=== PATIENT | male | born 1975 | race American Indian/Alaskan Native ===

== ENCOUNTER 2017-04-17 06:14 | Emergency (ER) | payer MEDICAID ==
[2017-04-17 06:30] VITALS: RESP 18; TEMP 98.6; O2SAT 98
--- NOTE | 2017-04-17 06:47 | C.PDOC ---
History Of Present Illness Patient comes in c/o subjective fevers associated with body aches, sore throat, and cough for 3 days. Denies ear pain, vomiting, diarrhea, abdominal pain, or back pain. No SOB, chest pain, or recent travel. Time Seen by Provider: 04/17/17 06:23 Chief Complaint (Nursing): Cough, Cold, Congestion History Per: Patient History/Exam Limitations: no limitations Onset/Duration Of Symptoms: Days (3) Current Symptoms Are (Timing): Still Present Location Of Pain: None Associated Symptoms: Sore Throat, Cough, Myalgias Ear Symptoms: Bilateral: None Severity: Mild Recent travel outside of the [place]: No Additional History Per: Patient Past Medical History Reviewed: Historical Data, Nursing Documentation, Vital Signs Vital Signs: Last Vital Signs Temp 98.6 F 04/17/17 06:23 Pulse 78 04/17/17 07:11 Resp 18 04/17/17 07:11 BP 115/71 04/17/17 07:11 Pulse Ox 98 04/17/17 07:11 - Medical History PMH: No Chronic Diseases Family History: States: Unknown Family Hx - Social History Hx Alcohol Use: No Hx Substance Use: No - Immunization History Hx Tetanus Toxoid Vaccination: No Hx Influenza Vaccination: Yes Hx Pneumococcal Vaccination: No Review Of Systems Constitutional: Positive for: Fever (subjective), Other (body aches) ENT: Positive for: Throat Pain Cardiovascular: Negative for: Chest Pain Respiratory: Positive for: Cough. Negative for: Shortness of Breath Gastrointestinal: Negative for: Vomiting, Abdominal Pain, Diarrhea Musculoskeletal: Negative for: Neck Pain, Back Pain Skin: Negative for: Rash Neurological: Negative for: Weakness Physical Exam - Physical Exam Appears: Non-toxic, No Acute Distress Skin: Warm, Dry, No Rash Head: Atraumatic, Normacephalic Eye(s): bilateral: Normal Inspection, PERRL, EOMI Ear(s): Bilateral: Normal Oral Mucosa: Moist Throat: Erythema, No Exudate Neck: Normal ROM, Supple Lymphatic: Adenopathy Chest: Symmetrical, No Tenderness Cardiovascular: Rhythm Regular, No Friction Rub, No Murmur Respiratory: Normal Breath Sounds, No Rales, No Rhonchi, No Wheezing Gastrointestinal/Abdominal: Soft, No Tenderness Back: No CVA Tenderness Neurological/Psych: Oriented x3, Normal Speech, Normal Cognition Gait: Steady ED Course And Treatment O2 Sat by Pulse Oximetry: 98 (RA) Pulse Ox Interpretation: Normal Medical Decision Making Medical Decision Making: Impression: * subjective fevers associated wtih body aches, sore throat, and cough for 3 days. Disposition - Disposition Referrals: [facility] [Outside] Disposition: HOME/ ROUTINE Disposition Time: 06:47 Condition: GOOD Additional Instructions: Follow up with the medical doctor within 1-2 days. Return if worsened. Prescriptions: Azithromycin [Zithromax] 250 mg PO DAILY #4 tab Ibuprofen [Motrin] 600 mg PO TID #21 tab predniSONE [Prednisone] 20 mg PO BID #10 tab Instructions: Pharyngitis (ED) Forms: [employer] (Citizen Of [place]), Work Excuse - Clinical Impression Clinical Impression: Pharyngitis - Scribe Statement The provider has reviewed the documentation as recorded by the Scribe Cesar llanes All medical record entries made by the Scribe were at my direction and personally dictated by me. I have reviewed the chart and agree that the record accurately reflects my personal performance of the history, physical exam, medical decision making, and the department course for this patient. I have also personally directed, reviewed, and agree with the discharge instructions and disposition.
[2017-04-17 07:11] VITALS: BP 115/71; PULSE 78
== END 2017-04-17 07:12 | disposition home or self-care (01) ==
LOC: C.ER 06:14
DX: J02.9 Acute pharyngitis, unspecified (principal)

== ENCOUNTER 2018-08-08 04:08 | Inpatient (IN) | payer MEDICAID ==
--- NOTE | 2018-08-08 04:20 | C.PDOC ---
History Of Present Illness Patient woke up around 3:10 AM and noticed that he had no strength to squeeze the toothpaste with his right hand. Woke up his and realized that he had some slurred speech and his right side of the face"was not right" Patient took an aspirin area captain. In the ed no facial droop, mild slurred speech. No headache. n/v/f/c/. Time Seen by Provider: 08/08/18 04:17 History Per: Patient History/Exam Limitations: no limitations Onset/Duration Of Symptoms: Hrs (1.15) Current Symptoms Are (Timing): Better Severity: Moderate Pain Scale Rating Of: 4 Recent travel outside of the [place]: No Additional History Per: Family Past Medical History Reviewed: Historical Data, Nursing Documentation, Vital Signs Family History: States: No Known Family Hx - Social History Hx Alcohol Use: No Hx Substance Use: No - Immunization History Hx Tetanus Toxoid Vaccination: No Hx Influenza Vaccination: Yes Hx Pneumococcal Vaccination: No Review Of Systems Constitutional: Negative for: Fever, Chills Eyes: Negative for: Vision Change ENT: Negative for: Throat Pain Cardiovascular: Negative for: Chest Pain Respiratory: Negative for: Shortness of Breath Gastrointestinal: Negative for: Nausea, Vomiting, Abdominal Pain Genitourinary: Negative for: Dysuria Musculoskeletal: Negative for: Back Pain Skin: Negative for: Rash Neurological: Positive for: Weakness (right hand), Change in Speech Psych: Negative for: Anxiety Physical Exam - Physical Exam Appears: Non-toxic, No Acute Distress Skin: Warm, Dry Head: Normacephalic Eye(s): bilateral: Normal Inspection, PERRL, EOMI Nose: Normal Oral Mucosa: Moist Tongue: Normal Appearing Lips: Normal Appearing Throat: No Erythema, No Exudate Neck: Supple Chest: Symmetrical Cardiovascular: Rhythm Regular Respiratory: No Rales, No Rhonchi, No Wheezing Gastrointestinal/Abdominal: Soft, No Tenderness, No Distention Back: Normal Inspection Extremity: Normal ROM Extremity: Bilateral: Atraumatic, No Pedal Edema, Normal Color And Temperature, Normal ROM Pulses: Left Dorsalis Pedis: Normal, Right Dorsalis Pedis: Normal Neurological/Psych: Oriented x3, No Normal Speech (mild slurred speech) Gait: Steady Other Neurological Findings: No Facial Palsy Extremity: Right: No Drift, Left: No Drift, Upper: No Drift, Lower: No Drift ED Course And Treatment - Laboratory Results Result Diagrams: 08/08/18 04:29 08/08/18 04:29 ECG: Interpreted By Me, Viewed By Me ECG Rhythm: Sinus Rhythm (53), Nonspecific Changes O2 Sat by Pulse Oximetry: 99 Pulse Ox Interpretation: Normal - Radiology CXR: Interpreted by Me, Viewed By Me Progress Note: 5:50 AM Pt is back to base line,. Slurred speeche resolved. spoke with dr bright. ok with mri/mra in am. Critical Care Time - Critical Care Note Total Time (in mins): 30 Documented critical care: time excludes all time spent performing seperately billable procedures. NIHSS Stroke Scale - Date/Time Evaluation Performed Date Performed: 08/08/18 Time Performed: 04:13 When Was NIHSS Performed: Baseline - How Severe is the Stroke Level of Consciousness: 0=Alert LOC to Questions: 0=Both comments correct LOC to commands: 0=Obeys both correctly Best Gaze: 0=Normal Visual: 0=No visual loss Facial: 0=Normal Motor Arm - Left: 0=No drift Motor Arm - Right: 0=No drift Motor Leg - Left: 0=No drift Motor Leg - Right: 0=No drift Limb Ataxia: 0=Absent Sensory: 0=Normal Best Language: 0=No aphasia Dysarthia: 1=Mild to moderate slurring Extinction & Inattention (Neglect): 0=Normal, no object Score: 1 Disposition Discussed With : Vini Wild Comment: accepted the pt on his service and took over the care at 5:52 AM Doctor Will See Patient In The: Hospital Counseled Patient/Family Regarding: Studies Performed, Diagnosis - Disposition Disposition: HOSPITALIZED Disposition Time: 04:17 Condition: GUARDED - POA Present On Arrival: None - Clinical Impression Clinical Impression: TIA (transient ischemic attack) Decision To Admit - Pt Status Changed To: Hospital Disposition Of: Inpatient - Admit Certification Admit to Inpatient:: After my assessment, the patient will require hospitalization for at least two midnights. This is because of the severity of symptoms shown, intensity of services needed, and/or the medical risk in this patient being treated as an outpatient. - InPatient: Physician Admission Certification: I certify that this patient requires 2 or more midnights of care for the following reason:: After my assessment, the patient will require hospitalization for at least two midnights. This is because of the severity of symptoms shown, intensity of services needed, and/or the medical risk in this patient being treated as an outpatient. - . Bed Request Type: Telemetry Admitting Physician: Vini Wild Patient Diagnosis: TIA (transient ischemic attack)
[2018-08-08 04:23] VITALS: BMI 30.7
[2018-08-08 04:33] LABS: BASO # 0.1 K/uL (0.0-0.2); BASO % 1.3 % (0.0-2.0); EOS # 0.2 K/uL (0.0-0.7); EOS % 4.4 % (0.0-4.0); HEMOGLOBIN 15.9 g/dL (12.0-18.0); LYMPH # 1.4 K/uL (1.0-4.3); LYMPH % 32.2 % (20.0-40.0); MEAN CELL VOLUME 88.2 fL (80.0-94.0); MEAN CORPUSCULAR HEMOGLOBIN 28.8 pg (27.0-31.0); MEAN CORPUSCULAR HGB CONC 32.6 g/dL (33.0-37.0); MEAN PLATELET VOLUME 8.4 fL (7.2-11.7); MONO # 0.4 K/uL (0.0-0.8); MONO % 9.1 % (0.0-10.0); NEUT # 2.4 K/uL (1.8-7.0); NRBC % 0.1 % (0.0-2.0); RBC 5.51 Mil/uL (4.40-5.90); RED CELL DISTRIBUTION WIDTH 13.1 % (11.5-14.5); WHITE BLOOD COUNT 4.5 K/uL (4.8-10.8)
[2018-08-08 04:43] LABS: ALB/GLOB RATIO 1.5 (1.0-2.1); ALBUMIN 4.5 g/dL (3.5-5.0); BLOOD UREA NITROGEN 15 mg/dL (9-20); CALCIUM 8.8 mg/dl (8.6-10.4); GFR NON-AFRICAN AMERICAN > 60; HDL CHOLESTEROL 59 mg/dL (30-70)
[2018-08-08 04:45] LABS: INR 1.1; PROTHROMBIN TIME 11.8 SECONDS (9.7-12.2)
[2018-08-08 04:54] LABS: LDL CHOLESTEROL 110 mg/dL (0-129)
[2018-08-08 04:56] LABS: ALT/SGPT 34 U/L (21-72); AST/SGOT 48 U/L (17-59)
[2018-08-08] MEDS: Sodium Chloride 0.9% 1,000 ML IV SCH ×2 (05:54→16:06)
[2018-08-08] MEDS ORDERED: Sodium Chloride 0.9% 1,000 ML ONE (05:55)
--- NOTE | 2018-08-08 08:40 | CT ---
Date of service: 08/08/2018 PROCEDURE: CT HEAD WITHOUT CONTRAST. HISTORY: Code Stroke COMPARISON: None available. TECHNIQUE: Axial computed tomography images were obtained through the head/brain without intravenous contrast. Radiation dose: Total exam DLP = 1128.03 mGy-cm. This CT exam was performed using one or more of the following dose reduction techniques: Automated exposure control, adjustment of the mA and/or kV according to patient size, and/or use of iterative reconstruction technique. FINDINGS: HEMORRHAGE: No intracranial hemorrhage. BRAIN: Kahn-white matter differentiation is preserved. There is no mass, mass effect or abnormal extra-axial fluid collection. There is no territorial infarction. The midline sagittal structures are normal. VENTRICLES: The ventricles are normal in size, shape and configuration. CALVARIUM: There is no calvarial fracture or extracranial soft tissue swelling. PARANASAL SINUSES: There is complete opacification of the left frontal sinus and mild mucosal thickening in the left anterior ethmoid air cells. The remaining included paranasal sinuses are clear. MASTOID AIR CELLS: Predominantly clear. OTHER FINDINGS: None. IMPRESSION: No acute intracranial abnormality.If there is a persistent focal neurologic deficit and an ongoing clinical concern for acute infarction, an MRI of the brain without intravenous contrast would be a more sensitive modality for evaluation of hyperacute/acute ischemic infarction. Chronic left frontal and left anterior ethmoid sinusitis. A preliminary report was provided by [employer].
--- NOTE | 2018-08-08 08:44 | CT ---
Date of service: 08/08/2018 PROCEDURE: CTA HEAD AND NECK WITH CONTRAST HISTORY: right sided weakness, slurred speech COMPARISON: None available. TECHNIQUE: Initial noncontrast head CT was performed. Subsequently, CT angiogram of the head and neck were performed after the intravenous administration of 80 mL of Omnipaque 350. Contiguous 1.5mm thick images were obtained in the axial plane of the neck. 2-D coronal and sagittal MPR images were obtained. Imaging postprocessing was performed with 3-D images also obtained. A delayed contrast head CT was also obtained. This CT exam was performed using one or more of the following dose reduction techniques: Automated exposure control, adjustment of the mA and/or kV according to patient size, and/or use of iterative reconstruction technique. Contrast dose: 100 mL Visipaque 320 Radiation dose: Total exam DLP = 584.12 mGy-cm. FINDINGS: HEAD: Right: The intracranial internal carotid artery, and anterior and middle cerebral arteries are widely patent. The right A1 segment is hypoplastic, an anatomic variant. Left: The intracranial internal carotid artery, and anterior and middle cerebral arteries are widely patent. Posterior circulation: The visualized intracranial vertebral arteries, basilar artery and posterior cerebral arteries are widely patent. There is no endoluminal filling defect to suggest thrombus. There is no intracranial saccular aneurysm. NECK: There is a three vessel aortic arch. There is no stenosis at the origins of the great vessels at the level of the aortic arch. No atherosclerotic calcification or mural plaque present. Right Carotid: On the right, the common carotid, internal carotid and external carotid arteries are widely patent. There is no hemodynamically significant stenosis in the internal carotid artery by NASCET criteria. Left Carotid: On the left, the common carotid, internal carotid and external carotid arteries are widely patent. There is no hemodynamically significant stenosis in the internal carotid artery by NASCET criteria. The vertebral arteries are widely patent. The left vertebral artery is hypoplastic, an anatomic variant. The visualized soft tissues of the neck are normal. The visualized brain and cervical spine are within normal limits. The lung apices are clear. IMPRESSION: 1. No evidence of endoluminal thrombus,occlusion or definite significant stenosis in the intracranial arteries. 2. No evidence of hemodynamically significant stenosis in the internal carotid arteries. 3. Patent bilateral vertebral arteries. A preliminary report was provided by [employer].
--- NOTE | 2018-08-08 09:09 | RAD ---
Date of service: 08/08/2018 HISTORY: Code Stroke COMPARISON: 08/08/2018. FINDINGS: LUNGS: The lungs are well inflated and clear. PLEURA: No pleural effusions or pneumothorax. CARDIOVASCULAR: The heart is normal in size. No aortic atherosclerotic calcifications present. OSSEOUS STRUCTURES: Within normal limits for the patient's age. VISUALIZED UPPER ABDOMEN: Normal. OTHER FINDINGS: None. IMPRESSION: No active pulmonary disease.
--- NOTE | 2018-08-08 12:14 | MRI ---
Date of service: 08/08/2018 PROCEDURE: Magnetic Resonance Angiography Brain HISTORY: TIA COMPARISON: CTA head and neck performed earlier the same day TECHNIQUE: 3D time of flight MR angiography of the intracranial arteries was performed. Rotating maximum intensity projection images were generated. FINDINGS: INTERNAL CAROTID ARTERIES: Normal flow related signal. The skull base, petrous, cavernous and supraclinoid segments are bilaterally widely patient. ANTERIOR CEREBRAL ARTERIES: Normal flow related signal. A1 and A2 segments are widely patent. Smaller distal branches unremarkable, as visualized. The right A1 segment is hypoplastic, an anatomic variant. MIDDLE CEREBRAL ARTERIES: Normal flow related signal. M1 and M2 segments are widely patent. Perisylvian branches grossly symmetric. POSTERIOR CIRCULATION: Basilar Artery: Normal flow related signal. Normal in caliber and widely patent. Distal Vertebral Arteries: Normal flow related signal. Widely patent. The left vertebral artery is hypoplastic, an anatomic variant. Posterior Cerebral Arteries: Normal flow related signal. Widely patent. Posterior Inferior Cerebellar Arteries: Normal flow related signal. Widely patent. ANEURYSM/ VASCULAR MALFORMATIONS: None. OTHER FINDINGS: None. IMPRESSION: Normal noncontrast MR angiography of the brain.
--- NOTE | 2018-08-08 13:38 | MRI ---
Date of service: 08/08/2018 PROCEDURE: MRI BRAIN WITHOUT CONTRAST HISTORY: TIA COMPARISON: Noncontrast head CT from 08/08/2018. TECHNIQUE: Multiplanar, multisequence MR images of the brain were obtained without intravenous contrast enhancement. FINDINGS: HEMORRHAGE: None DWI: There is focal restricted diffusion in the right parietal lobe. BRAIN PARENCHYMA: There is subtle T2/FLAIR hyperintensity corresponding to the area of restricted diffusion in the parietal lobe. There is no mass, mass effect or abnormal extra-axial fluid collection. There is no territorial infarction. The midline sagittal structures are normal. VENTRICLES: There is mild age advanced global parenchymal volume loss and proportionate enlargement of the ventricles and cortical sulci. CRANIUM: There is normal bone marrow signal pattern. ORBITS: Grossly unremarkable. PARANASAL SINUSES/MASTOIDS: Chronic left frontal and left anterior ethmoid sinusitis. The remaining included paranasal sinuses and mastoid air cells are clear. VASCULAR SYSTEM: There are normal signal voids in the larger intracranial arteries. OTHER FINDINGS: None. 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 Mild global parenchymal volume loss, slightly advanced for the patient's age. Important findings were discussed with nurse Jenni Hooks on 08/08/2018 at 12:15P.m.
--- NOTE | 2018-08-08 17:04 | CP.PCM.CON ---
History of Present Illness - History of Present Illness History of Present Illness: Neurology Consultation Note: Mr. Hurtado is a 42-year-old man with no significant past medical history, referred to me by Dr. Wild, who developed left facial droop and hand weakness that was noted at around 3 AM when he woke up. He noticed the symptoms while he was brushing his teeth. He woke his up, took an aspirin, and came to the ED, where his symptoms had essentially resolved. CT scan of the head did not show any significant changes, and CTA of the head/neck did not show an LVO. However, MRI of the brain did show a right frontal/parietal lobe acute ischemic stroke. He was not a candidate for IV tPA due to being outside the 4.5 hour time window. Review of Systems - Constitutional Constitutional: As Per HPI - EENT Eyes: absent: As Per HPI, Blind Spots, Blurred Vision, Change in Vision, Decreased Night Vision, Diplopia, Discharge, Dry Eye, Exophthalmos, Floaters, Irritation, Itchy Eyes, Loss of Peripheral Vision, Pain, Photophobia, Requires Corrective Lenses, Sees Flashes, Spots in Vision, Tunnel Vision, Other Visual Disturbances, Loss of Vision, Other Ears: absent: As Per HPI, Decreased Hearing, Ear Discharge, Ear Pain, Tinnitus, Abnormal Hearing, Disequilibrium, Dizziness, Other Nose/Mouth/Throat: absent: As Per HPI, Epistaxis, Nasal Congestion, Nasal Discharge, Nasal Obstruction, Nasal Trauma, Nose Pain, Post Nasal Drip, Sinus Pain, Sinus Pressure, Bleeding Gums, Change in Voice, Dental Pain, Dry Mouth, Dysphagia, Halitosis, Hoarsness, Lip Swelling, Mouth Lesions, Mouth Pain, Odynophagia, Sore Throat, Throat Swelling, Tongue Swelling, Facial Pain, Neck Pain, Neck Mass, Other - Cardiovascular Cardiovascular: absent: As Per HPI, Acrocyanosis, Chest Pain, Chest Pain at Rest, Chest Pain with Activity, Claudication, Diaphoresis, Dyspnea, Dyspnea on Exertion, Edema, Irregular Heart Rhythm, Pain Radiating to Arm/Neck/Jaw, Leg Edema, Leg Ulcers, Lightheadedness, Orthopnea, Palpitations, Paroxysmal Noct urnal Dyspnea, Pedal Edema, Radiating Pain, Rapid Heart Rate, Slow Heart Rate, Syncope, Other - Respiratory Respiratory: absent: As Per HPI, Cough, Dyspnea, Hemoptysis, Dyspnea on Exertion, Wheezing, Snoring, Stridor, Pain on Inspiration, Chest Congestion, Excessive Mucous Production, Change in Mucous Color, Pain with Coughing, Other - Gastrointestinal Gastrointestinal: absent: As Per HPI, Abdominal Pain, Belching, Bloating, Change in Bowel Habits, Change in Stool Character, Coffee Ground Emesis, Constipation, Cramping, Diarrhea, Dyspepsia, Dysphagia, Early Satiety, Excessive Flatus, Fecal Incontinence, Heartburn, Hematemesis, Hematochezia, Loose Stools, Melena, Nausea, Odynophagia, Temesmus, Vomiting, Other - Musculoskeletal Musculoskeletal: absent: As Per HPI, Abnormal Gait, Arthralgias, Atrophy, Back Pain, Deformity, Joint Swelling, Limited Range of Motion, Loss of Height, Muscle Cramps, Muscle Weakness, Myalgias, Neck Pain, Numbness, Radiating Pain into Limb, Stiffness, Tingling, Other - Integumentary Integumentary: absent: As Per HPI, Acne, Alopecia, Bleeding Lesions, Change in Hair, Change in Nails, Change in Pigmentation, Changing Lesions, Dry Skin, Erythema, Furuncle, Hirsutism, Lesions, New Lesions, Non-Healing Lesions, Photosensitivity, Pruritus, Rash, Skin Pain, Skin Ulcer, Sores, Striae, Swelling, Unusual Bruising, Wounds, Jaundice, Other - Neurological Neurological: As Per HPI - Psychiatric Psychiatric: absent: As Per HPI, Abnormal Sleep Pattern, Anhedonia, Anxiety, Auditory Hallucinations, Behavioral Changes, Change in Appetite, Change in Libido, Confusion, Depression, Difficulty Concentrating, Hallucinations, Homicidal Ideation, Hopelessness, Irritability, Memory Loss, Mood Swings, Panic Attacks, Paranoia, Suicidal Ideation, Visual Hallucinations, Tactile Hallucinations, Other - Endocrine Endocrine: absent: As Per HPI, Change in Body Appearance, Change in Libido, Cold Intolorance, Deepening of Voice, Excessive Sweating, Fatigue, Flushing, Heat Intolorance, Increase in Ring/Shoe/Hat Size, Palpitations, Polydipsia, Polyphagia, Polyuria, Other - Hematologic/Lymphatic Hematologic: absent: As Per HPI, Easy Bleeding, Easy Bruising, Lymphadenopathy, Other Past Patient History - Infectious Disease Hx of Infectious Diseases: None - Past Medical History & Family History Past Medical History?: No - Past Social History Smoking Status: Never Smoked - MUSCULOSKELETAL/RHEUMATOLOGICAL Hx Falls: No - PSYCHIATRIC Hx Substance Use: No - SURGICAL HISTORY Hx Surgeries: Yes Hx Musculoskeletal Surgery: Yes (LEFT LEG SURGERY) - ANESTHESIA Hx Anesthesia: Yes Hx Anesthesia Reactions: No Meds Allergies/Adverse Reactions: Allergies Allergy/AdvReac Type Severity Reaction Status Date / Time No Known Allergies Allergy Verified 08/08/18 04:23 - Medications Medications: Current Medications Acetaminophen (Tylenol 325mg Tab) 650 mg PO Q6 PRN PRN Reason: Pain, moderate (4-7) Last Admin: 08/08/18 11:06 Dose: 650 mg Aspirin (Aspirin Chewable) 81 mg PO DAILY [facility] Sodium Chloride (Sodium Chloride 0.9%) 1,000 mls @ 100 mls/hr IV .Q10H [facility] Last Admin: 08/08/18 16:06 Dose: Not Given Rosuvastatin Calcium (Crestor) 5 mg PO HS [facility] Physical Exam - Constitutional Appears: Well - Head Exam Head Exam: ATRAUMATIC, NORMAL INSPECTION, NORMOCEPHALIC - Eye Exam Eye Exam: EOMI, Normal appearance, PERRL Pupil Exam: NORMAL ACCOMODATION, PERRL - ENT Exam ENT Exam: Mucous Membranes Moist, Normal Exam - Neck Exam Neck exam: Positive for: Normal Inspection - Respiratory Exam Respiratory Exam: Clear to Auscultation Bilateral, NORMAL BREATHING PATTERN - Cardiovascular Exam Cardiovascular Exam: REGULAR RHYTHM, +S1, +S2 - GI/Abdominal Exam GI & Abdominal Exam: Normal Bowel Sounds, Soft. absent: Tenderness - Rectal Exam Rectal Exam: Deferred - Extremities Exam Extremities exam: Positive for: normal inspection - Back Exam Back exam: NORMAL INSPECTION - Neurological Exam Neurological exam: Alert, CN II-XII Intact, Normal Gait, Oriented x3, Reflexes Normal Additional comments: Left pronator drift. NIHSS = 1 - Psychiatric Exam Psychiatric exam: Normal Affect, Normal Mood - Skin Skin Exam: Dry, Intact, Normal Color, Warm Results - Vital Signs Recent Vital Signs: Last Vital Signs Temp 98.1 F 08/08/18 16:16 Pulse 62 08/08/18 16:16 Resp 20 08/08/18 16:16 BP 132/68 08/08/18 16:16 Pulse Ox 99 08/08/18 16:16 - Labs Result Diagrams: 08/08/18 04:29 08/08/18 04:29 Labs: Laboratory Results - last 24 hr 08/08/18 08/08/18 08/08/18 04:18 04:29 04:29 WBC 4.5 L RBC 5.51 Hgb 15.9 Hct 48.6 MCV 88.2 MCH 28.8 MCHC 32.6 L RDW 13.1 Plt Count 189 MPV 8.4 Neut % (Auto) 53.0 Lymph % (Auto) 32.2 [place] % (Auto) 9.1 Eos % (Auto) 4.4 H Baso % (Auto) 1.3 Neut # (Auto) 2.4 Lymph # (Auto) 1.4 [place] # (Auto) 0.4 Eos # (Auto) 0.2 Baso # (Auto) 0.1 PT 11.8 INR 1.1 APTT 37 H Sodium Potassium Chloride Carbon Dioxide Anion Gap BUN Creatinine Est GFR ( Amer) Est GFR (Non-Af Amer) POC Glucose (mg/dL) 102 Random Glucose Hemoglobin A1c Calcium Total Bilirubin AST ALT Alkaline Phosphatase Troponin I Total Protein Albumin Globulin Albumin/Globulin Ratio Triglycerides Cholesterol LDL Cholesterol Direct HDL Cholesterol Blood Type Antibody Screen 08/08/18 08/08/18 08/08/18 04:29 04:29 05:29 WBC RBC Hgb Hct MCV MCH MCHC RDW Plt Count MPV Neut % (Auto) Lymph % (Auto) [place] % (Auto) Eos % (Auto) Baso % (Auto) Neut # (Auto) Lymph # (Auto) [place] # (Auto) Eos # (Auto) Baso # (Auto) PT INR APTT Sodium 134 Potassium 4.7 Chloride 101 Carbon Dioxide 28 Anion Gap 10 BUN 15 Creatinine 1.1 Est GFR ( Amer) > 60 Est GFR (Non-Af Amer) > 60 POC Glucose (mg/dL) Random Glucose 102 Hemoglobin A1c 5.4 Calcium 8.8 Total Bilirubin 1.7 H AST 48 ALT 34 Alkaline Phosphatase 44 Troponin I < 0.0120 Total Protein 7.5 Albumin 4.5 Globulin 3.0 Albumin/Globulin Ratio 1.5 Triglycerides 87 Cholesterol 203 H LDL Cholesterol Direct 110 HDL Cholesterol 59 Blood Type B POSITIVE Antibody Screen Negative Assessment & Plan (1) Ischemic stroke Assessment and Plan: The patient does not have any significant past medical history or risk factors for stroke. The patient will need to be admitted for further work-up and management. I recommend the followin. Telemetry 2. Echocardiogram with bubble study 3. Check HbA1c, Lipid panel, B12, folate, TSH, T3/4, homocysteine level, vitamin D level, hypercoagulable state work-up, ESR, CRP. 4. Permissive HTN (only treat BP higher than 220/110 mm Hg for the next 36-48 hours) 5. PT/OT eval and treatment 6. Load with Plavix 300 mg, and continue Plavix 75 mg and Aspirin 81 mg daily, first dose given 7. Crestor 10 mg daily 8. Fluids with NS at 100 ml/hr 9. Consider Linq device placement if no other cause for stroke is identified (stroke in young work-up) 10. Case management consult Thank you for this consultation. Status: Acute
--- NOTE | 2018-08-08 22:49 | CP.PCM.CON ---
History of Present Illness - History of Present Illness History of Present Illness: Reason For Consultation: R/O Cardiac source of CVA Patient woke up around 3:10 AM and noticed that he had no strength to squeeze the toothpaste with his right hand. 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 In the ed no facial droop, mild slurred speech. No headache. n/v/f/c/. History Per: Patient History/Exam Limitations: no limitations Current Symptoms Are (Timing): Better Severity: Moderate Pain Scale Rating Of: 4 Recent travel outside of the [place]: No Additional History Per: Family Past Medical History Reviewed: Historical Data, Nursing Documentation, Vital Signs Family History: States: No Known Family Hx - Social History Hx Alcohol Use: No Hx Substance Use: No - Immunization History Hx Tetanus Toxoid Vaccination: No Hx Influenza Vaccination: Yes Hx Pneumococcal Vaccination: No Review Of Systems Constitutional: Negative for: Fever, Chills Eyes: Negative for: Vision Change ENT: Negative for: Throat Pain Cardiovascular: Negative for: Chest Pain Respiratory: Negative for: Shortness of Breath Gastrointestinal: Negative for: Nausea, Vomiting, Abdominal Pain Genitourinary: Negative for: Dysuria Musculoskeletal: Negative for: Back Pain Skin: Negative for: Rash Neurological: Positive for: Weakness (right hand), Change in Speech Psych: Negative for: Anxiety Physical Exam - Physical Exam Appears: Non-toxic, No Acute Distress Skin: Warm, Dry Head: Normacephalic Eye(s): bilateral: Normal Inspection, PERRL, EOMI Nose: Normal Oral Mucosa: Moist Tongue: Normal Appearing Lips: Normal Appearing Throat: No Erythema, No Exudate Neck: Supple Chest: Symmetrical Cardiovascular: Rhythm Regular Respiratory: No Rales, No Rhonchi, No Wheezing Gastrointestinal/Abdominal: Soft, No Tenderness, No Distention Back: Normal Inspection Extremity: Normal ROM Extremity: Bilateral: Atraumatic, No Pedal Edema, Normal Color And Temperature, Normal ROM Pulses: Left Dorsalis Pedis: Normal, Right Dorsalis Pedis: Normal Neurological/Psych: Oriented x3, No Normal Speech (mild slurred speech) Gait: Steady Other Neurological Findings: No Facial Palsy Extremity: Right: No Drift, Left: No Drift, Upper: No Drift, Lower: No Drift Past Patient History - Infectious Disease Hx of Infectious Diseases: None - Past Medical History & Family History Past Medical History?: No - Past Social History Smoking Status: Never Smoked - MUSCULOSKELETAL/RHEUMATOLOGICAL Hx Falls: No - PSYCHIATRIC Hx Substance Use: No - SURGICAL HISTORY Hx Surgeries: Yes Hx Musculoskeletal Surgery: Yes (LEFT LEG SURGERY) - ANESTHESIA Hx Anesthesia: Yes Hx Anesthesia Reactions: No Meds Allergies/Adverse Reactions: Allergies Allergy/AdvReac Type Severity Reaction Status Date / Time No Known Allergies Allergy Verified 08/08/18 04:23 - Medications Medications: Current Medications Acetaminophen (Tylenol 325mg Tab) 650 mg PO Q6 PRN PRN Reason: Pain, moderate (4-7) Last Admin: 08/08/18 22:03 Dose: 650 mg Aspirin (Aspirin Chewable) 81 mg PO DAILY [facility] Sodium Chloride (Sodium Chloride 0.9%) 1,000 mls @ 100 mls/hr IV .Q10H [facility] Last Admin: 08/08/18 16:06 Dose: Not Given Rosuvastatin Calcium (Crestor) 10 mg PO HS [facility] Last Admin: 08/08/18 22:03 Dose: 10 mg Results - Vital Signs Recent Vital Signs: Last Vital Signs Temp 98.1 F 08/08/18 16:16 Pulse 62 08/08/18 16:16 Resp 20 08/08/18 16:16 BP 132/68 08/08/18 16:16 Pulse Ox 99 08/08/18 16:16 - Labs Result Diagrams: 08/08/18 04:29 08/08/18 04:29 Labs: Laboratory Results - last 24 hr 08/08/18 08/08/18 08/08/18 04:18 04:29 04:29 WBC 4.5 L RBC 5.51 Hgb 15.9 Hct 48.6 MCV 88.2 MCH 28.8 MCHC 32.6 L RDW 13.1 Plt Count 189 MPV 8.4 Neut % (Auto) 53.0 Lymph % (Auto) 32.2 [place] % (Auto) 9.1 Eos % (Auto) 4.4 H Baso % (Auto) 1.3 Neut # (Auto) 2.4 Lymph # (Auto) 1.4 [place] # (Auto) 0.4 Eos # (Auto) 0.2 Baso # (Auto) 0.1 PT 11.8 INR 1.1 APTT 37 H Sodium Potassium Chloride Carbon Dioxide Anion Gap BUN Creatinine Est GFR ( Amer) Est GFR (Non-Af Amer) POC Glucose (mg/dL) 102 Random Glucose Hemoglobin A1c Calcium Total Bilirubin AST ALT Alkaline Phosphatase Troponin I Total Protein Albumin Globulin Albumin/Globulin Ratio Triglycerides Cholesterol LDL Cholesterol Direct HDL Cholesterol Blood Type Antibody Screen 08/08/18 08/08/18 08/08/18 04:29 04:29 05:29 WBC RBC Hgb Hct MCV MCH MCHC RDW Plt Count MPV Neut % (Auto) Lymph % (Auto) [place] % (Auto) Eos % (Auto) Baso % (Auto) Neut # (Auto) Lymph # (Auto) [place] # (Auto) Eos # (Auto) Baso # (Auto) PT INR APTT Sodium 134 Potassium 4.7 Chloride 101 Carbon Dioxide 28 Anion Gap 10 BUN 15 Creatinine 1.1 Est GFR ( Amer) > 60 Est GFR (Non-Af Amer) > 60 POC Glucose (mg/dL) Random Glucose 102 Hemoglobin A1c 5.4 Calcium 8.8 Total Bilirubin 1.7 H AST 48 ALT 34 Alkaline Phosphatase 44 Troponin I < 0.0120 Total Protein 7.5 Albumin 4.5 Globulin 3.0 Albumin/Globulin Ratio 1.5 Triglycerides 87 Cholesterol 203 H LDL Cholesterol Direct 110 HDL Cholesterol 59 Blood Type B POSITIVE Antibody Screen Negative Assessment & Plan - Assessment and Plan (Free Text) Assessment: CVA r/o Cardiac source ECHO with bubble study Carotid duplex Check Lipid profile
[2018-08-09] MEDS: Sodium Chloride 0.9% 1,000 ML IV SCH ×4 (00:34→20:07)
--- NOTE | 2018-08-09 19:45 | CP.PCM.PN ---
Subjective - Date & Time of Evaluation Date of Evaluation: 08/09/18 Time of Evaluation: 10:40 - Subjective Subjective: Patient seen and evaluated No cardiac events noted Review Of Systems Constitutional: Negative for: Fever, Chills Eyes: Negative for: Vision Change ENT: Negative for: Throat Pain Cardiovascular: Negative for: Chest Pain Respiratory: Negative for: Shortness of Breath Gastrointestinal: Negative for: Nausea, Vomiting, Abdominal Pain Genitourinary: Negative for: Dysuria Musculoskeletal: Negative for: Back Pain Skin: Negative for: Rash Neurological: Positive for: Weakness (right hand), Change in Speech Psych: Negative for: Anxiety Physical Exam - Physical Exam Appears: Non-toxic, No Acute Distress Skin: Warm, Dry Head: Normacephalic Eye(s): bilateral: Normal Inspection, PERRL, EOMI Nose: Normal Oral Mucosa: Moist Tongue: Normal Appearing Lips: Normal Appearing Throat: No Erythema, No Exudate Neck: Supple Chest: Symmetrical Cardiovascular: Rhythm Regular Respiratory: No Rales, No Rhonchi, No Wheezing Gastrointestinal/Abdominal: Soft, No Tenderness, No Distention Back: Normal Inspection Extremity: Normal ROM Extremity: Bilateral: Atraumatic, No Pedal Edema, Normal Color And Temperature, Normal ROM Pulses: Left Dorsalis Pedis: Normal, Right Dorsalis Pedis: Normal Neurological/Psych: Oriented x3, No Normal Speech (mild slurred speech) Gait: Steady Other Neurological Findings: No Facial Palsy Extremity: Right: No Drift, Left: No Drift, Upper: No Drift, Lower: No Drift Assessment & Plan - Assessment and Plan (Free Text) Assessment: CVA r/o Cardiac source ECHO with bubble study Carotid duplex Objective - Vital Signs/Intake and Output Vital Signs (last 24 hours): Temp Pulse Resp BP Pulse Ox 97.7 F 62 20 106/63 100 08/09/18 16:20 08/09/18 16:20 08/09/18 16:20 08/09/18 16:20 08/09/18 16:20 - Medications Medications: Current Medications Acetaminophen (Tylenol 325mg Tab) 650 mg PO Q6 PRN PRN Reason: Pain, moderate (4-7) Last Admin: 08/09/18 15:01 Dose: 650 mg Aspirin (Aspirin Chewable) 81 mg PO DAILY [facility]OS Last Admin: 08/09/18 09:12 Dose: 81 mg Sodium Chloride (Sodium Chloride 0.9%) 1,000 mls @ 100 mls/hr IV .Q10H [facility] Last Admin: 08/09/18 19:37 Dose: Not Given Rosuvastatin Calcium (Crestor) 10 mg PO HS [facility] Last Admin: 08/08/18 22:03 Dose: 10 mg - Labs Labs: 08/08/18 04:29 08/08/18 04:29 PT 11.8 SECONDS (9.7-12.2) 08/08/18 04:29 INR 1.1 08/08/18 04:29 APTT 37 SECONDS (21-34) H 08/08/18 04:29
[2018-08-10] MEDS: Sodium Chloride 0.9% 1,000 ML IV SCH (05:53)
--- NOTE | 2018-08-10 08:14 | HP ---
HISTORY OF PRESENT ILLNESS: A 42-year-old male, admitted to the hospital with a chief complaint of slurred speech. The patient came to the hospital, was advised admission. The patient was noted to have hypertension, diabetes and high cholesterol. 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 The patient goes to gym regularly. The patient is . PHYSICAL EXAMINATION GENERAL: The patient is awake, alert and oriented. VITAL SIGNS: Temperature 98, pulse 90. HEENT: Within normal limits. NECK: Supple. CHEST: Symmetrical. HEART: Regular. ABDOMEN: Soft. EXTREMITIES: No edema. ASSESSMENT AND PLAN: The patient has transient ischemic attack without cerebrovascular accident. The patient bed rest, . Neurology evalution. Vini Wild MD
--- NOTE | 2018-08-10 08:55 | CP.PCM.PN ---
Subjective - Date & Time of Evaluation Date of Evaluation: 08/10/18 Time of Evaluation: 08:00 - Subjective Subjective: PGY2- Progress Note for Dr. Wild Patient is a 42 year old male with no significant past medical history, family history, or social history seen and examined at bedside and in no acute distress. Patient's symptoms of slurred speech, left sided weakness, and facial droop have been resolved since admission. Patient has a right sided headache which he rates 8/10 and says it is helped with Tylenol. Patient denies any chest pain, shortness of breath, nausea, vomiting, constipation, or diarrhea. Objective - Vital Signs/Intake and Output Vital Signs (last 24 hours): Temp Pulse Resp BP Pulse Ox 98.5 F 67 20 102/61 95 08/10/18 00:00 08/10/18 00:00 08/10/18 00:00 08/10/18 00:00 08/10/18 00:00 Intake and Output: 08/10/18 08/10/18 06:59 18:59 Intake Total 800 Balance 800 - Medications Medications: Current Medications Acetaminophen (Tylenol 325mg Tab) 650 mg PO Q6 PRN PRN Reason: Pain, moderate (4-7) Last Admin: 08/10/18 05:56 Dose: 650 mg Aspirin (Aspirin Chewable) 81 mg PO DAILY [facility] Last Admin: 08/09/18 09:12 Dose: 81 mg Clopidogrel Bisulfate (Plavix) 75 mg PO DAILY [facility] Sodium Chloride (Sodium Chloride 0.9%) 1,000 mls @ 100 mls/hr IV .Q10H [facility] Last Admin: 08/10/18 05:53 Dose: 100 mls/hr Rosuvastatin Calcium (Crestor) 10 mg PO HS [facility] Last Admin: 08/09/18 21:30 Dose: 10 mg - Labs Labs: 08/08/18 04:29 08/08/18 04:29 PT 11.8 SECONDS (9.7-12.2) 08/08/18 04:29 INR 1.1 08/08/18 04:29 APTT 37 SECONDS (21-34) H 08/08/18 04:29 - Constitutional Appears: Non-toxic, No Acute Distress - Head Exam Head Exam: ATRAUMATIC, NORMAL INSPECTION, NORMOCEPHALIC - Eye Exam Eye Exam: EOMI, Normal appearance - ENT Exam ENT Exam: Mucous Membranes Moist - Respiratory Exam Respiratory Exam: Clear to Ausculation Bilateral, NORMAL BREATHING PATTERN - Cardiovascular Exam Cardiovascular Exam: REGULAR RHYTHM, RRR, +S1, +S2 - GI/Abdominal Exam GI & Abdominal Exam: Soft, Normal Bowel Sounds. absent: Tenderness - Extremities Exam Extremities Exam: Full ROM, Normal Inspection. absent: Pedal Edema - Neurological Exam Neurological Exam: Alert, Awake, Oriented x3 Neuro motor strength exam: Left Upper Extremity: 5, Right Upper Extremity: 5, Left Lower Extremity: 5, Right Lower Extremity: 5 - Psychiatric Exam Psychiatric exam: Normal Affect, Normal Mood - Skin Skin Exam: Intact, Normal Color, Warm Assessment and Plan - Assessment and Plan (Free Text) Assessment: CVA Meds: ASA 81mg po daily Plavix 75mg po daily Crestor 10mg po HS Tylenol 650mg po q6h prn for headache Neuro, Dr. Sifuentes, consulted- help appreciated Cardio, Dr. Andrade, consulted- help appreciated Imaging 08/08/17: Brain MRI: acute right MCA territory infarction involving the parietal lobe. Mild global parenchymal volume loss, slightly advanced for patient's age. Head CT: no acute intracranial abnormality Head/ Neck CTA: no evidence of endoluminal thrombus, occlusion or definite significant stenosis in the intracranial arteries. No evidence of hemodynamically significant stenosis in the internal carotid arteries, patent bilateral vertebral arteries. Brain MRA: normal noncontrast MR angiography of the brain r/o cardiac etiology f/u echo with bubble study f/u labs: B12, vit D, homocysteine, TSH, free T4, ESR, CRP, antithrombin III, Factor V Leiden, Protein S, Protein C Case discussed and patient seen with Dr. Wild
[2018-08-10 11:40] LABS: BASO # 0.1 K/uL (0.0-0.2); BASO % 1.2 % (0.0-2.0); EOS # 0.1 K/uL (0.0-0.7); EOS % 1.5 % (0.0-4.0); HEMOGLOBIN 14.3 g/dL (12.0-18.0); LYMPH # 1.1 K/uL (1.0-4.3); LYMPH % 22.8 % (20.0-40.0); MEAN CELL VOLUME 88.1 fL (80.0-94.0); MEAN CORPUSCULAR HEMOGLOBIN 29.1 pg (27.0-31.0); MEAN PLATELET VOLUME 8.9 fL (7.2-11.7); MONO # 0.2 K/uL (0.0-0.8); MONO % 5.2 % (0.0-10.0); NEUT # 3.2 K/uL (1.8-7.0); NEUT % 69.3 % (50.0-75.0); NRBC % 0.1 % (0.0-2.0); RBC 4.93 Mil/uL (4.40-5.90); RED CELL DISTRIBUTION WIDTH 12.7 % (11.5-14.5); WHITE BLOOD COUNT 4.7 K/uL (4.8-10.8)
[2018-08-10 12:03] LABS: ALB/GLOB RATIO 1.6 (1.0-2.1); ALBUMIN 3.8 g/dL (3.5-5.0); ALT/SGPT 31 U/L (21-72); AST/SGOT 24 U/L (17-59); BLOOD UREA NITROGEN 7 mg/dL (9-20); CALCIUM 8.4 mg/dl (8.6-10.4); GFR NON-AFRICAN AMERICAN > 60
[2018-08-10 13:06] LABS: FOLATE 8.3 ng/mL
--- NOTE | 2018-08-10 14:35 | CP.PCM.PN ---
Subjective - Date & Time of Evaluation Date of Evaluation: 08/10/18 Time of Evaluation: 14:35 - Subjective Subjective: Neuro Follow-Up Note: Mr. Hurtado was evaluated this afternoon in bed with significant other at bedside. He is complaining of a right sided h/a (by temporal/parietal area) that he describes as "not a normal headache." He rates his h/a a 9/10 at this time. Given Tylenol prn but finds minimal relief at this time. He denies other sym ptoms. Denies dizziness, visual changes, chest pain, palpitations, sob, cough, abd pain, n/v/d. Objective - Vital Signs/Intake and Output Vital Signs (last 24 hours): Temp Pulse Resp BP Pulse Ox 98.1 F 52 L 20 119/71 98 08/10/18 08:00 08/10/18 08:34 08/10/18 08:00 08/10/18 08:00 08/10/18 08:00 Intake and Output: 08/10/18 08/10/18 06:59 18:59 Intake Total 800 Balance 800 - Medications Medications: Current Medications Acetaminophen (Tylenol 325mg Tab) 650 mg PO Q6 PRN PRN Reason: Pain, moderate (4-7) Last Admin: 08/10/18 13:56 Dose: 650 mg Aspirin (Aspirin Chewable) 81 mg PO DAILY [facility] Last Admin: 08/10/18 09:59 Dose: 81 mg Clopidogrel Bisulfate (Plavix) 75 mg PO DAILY [facility] Last Admin: 08/10/18 09:59 Dose: 75 mg Rosuvastatin Calcium (Crestor) 10 mg PO HS [facility] Last Admin: 08/09/18 21:30 Dose: 10 mg - Labs Labs: 08/10/18 11:29 08/10/18 11:29 PT 11.8 SECONDS (9.7-12.2) 08/08/18 04:29 INR 1.1 08/08/18 04:29 APTT 37 SECONDS (21-34) H 08/08/18 04:29 - Constitutional Appears: Well, Non-toxic, No Acute Distress - Head Exam Head Exam: ATRAUMATIC, NORMAL INSPECTION, NORMOCEPHALIC - Eye Exam Eye Exam: EOMI, Normal appearance, PERRL Pupil Exam: NORMAL ACCOMODATION, PERRL - ENT Exam ENT Exam: Mucous Membranes Moist - Neck Exam Neck Exam: Full ROM, Normal Inspection - Respiratory Exam Respiratory Exam: NORMAL BREATHING PATTERN - Cardiovascular Exam Cardiovascular Exam: REGULAR RHYTHM - Extremities Exam Extremities Exam: Full ROM. absent: Calf Tenderness, Pedal Edema - Back Exam Back Exam: Full ROM, NORMAL INSPECTION - Neurological Exam Neurological Exam: Alert, Awake, CN II-XII Intact, Normal Gait, Oriented x3, Reflexes Normal Neuro motor strength exam: Left Upper Extremity: 4 (forms examiner 4/5), Right Upper Extremity: 5 (forms examiner 5/5), Left Lower Extremity: 5, Right Lower Extremity: 5 Additional comments: Speech clear and fluid No facial asymmetry Follows all commands FROM to all extremities; strength likely diminished to LUE compared to RUE Sensation and vibration intact and equal No tremors, no clonus - Psychiatric Exam Psychiatric exam: Normal Affect, Normal Mood - Skin Skin Exam: Normal Color Assessment and Plan (1) Acute right MCA stroke Assessment & Plan: Imaging reviewed: -ECHO w/ Bubble (08/10/18): pending results -Head MRA (08/08/18): Normal noncontrast MR angiography of the brain. -MRI Brain (08/08/18): Acute right MCA territory infarction involving the parietal lobe. Mild global parenchymal volume loss, slightly advanced for the patient's age. -CTA head/Neck (08/08/18): 1. No evidence of endoluminal thrombus,occlusion or definite significant stenosis in the intracranial arteries. 2. No evidence of hemodynamically significant stenosis in the internal carotid arteries. 3. Patent bilateral vertebral arteries. -CT head (08/08/18): No acute intracranial abnormality.If there is a persistent focal neurologic deficit and an ongoing clinical concern for acute infarction, an MRI of the brain without intravenous contrast would be a more sensitive modality for evaluation of hyperacute/acute ischemic infarction. Chronic left frontal and left anterior ethmoid sinusitis. -Stat CT Head without contrast ordered to r/o hemorrhagic conversion. -Continue ASA, Plavix, Statin. -If repeat CT Head shows hemorrhagic conversion, hold ASA and Plavix. -Pending ECHO w bubble results. -Continue PT/OT -Continue tele monitoring -Pending labs to r/o coagulopathy. -I discussed the results and plan with the pt and significant other at length. They both understand and agree. -Notify neuro team of any acute changes in pt's condition. Case discussed with Dr. Uribe. Status: Acute
--- NOTE | 2018-08-10 14:54 | CARD ---
APPROVED REPORT Date of service: 08/08/2018 EKG Measurement Heart [id number] <Conclusion> Sinus bradycardia Otherwise normal ECG
--- NOTE | 2018-08-10 16:16 | CT ---
Date of service: 08/10/2018 PROCEDURE: CT HEAD WITHOUT CONTRAST. HISTORY: r/o hemorrhagic conversion COMPARISON: Noncontrast head CT performed 08/08/18, MRI brain performed 08/08/18 TECHNIQUE: Axial computed tomography images were obtained through the head/brain without intravenous contrast. Radiation dose: Total exam DLP = 963.93 mGy-cm. This CT exam was performed using one or more of the following dose reduction techniques: Automated exposure control, adjustment of the mA and/or kV according to patient size, and/or use of iterative reconstruction technique. FINDINGS: HEMORRHAGE: Thin curvilinear hyperdensity in the right frontal lobe consistent with subarachnoid hemorrhage (series 4, image 31). BRAIN: No mass effect or edema. Hypodensity involving the right frontal lobe consistent with ischemic infarction.Please note that MRI with diffusion imaging is more sensitive in the detection of acute ischemic event. VENTRICLES: No hydrocephalus. CALVARIUM: Unremarkable. PARANASAL SINUSES: Mucosal polyp/cyst, left frontal sinus. MASTOID AIR CELLS: Unremarkable as visualized. No inflammatory changes. OTHER FINDINGS: None. IMPRESSION: Curvilinear hyperdensity noted within the right frontal lobe consistent with subarachnoid hemorrhage. Interval development of patchy hypodensity involving the right frontal lobe consistent with ischemic infarction. Finding discussed with the patient's RN Jenni on 08/10/18 at 4:11 p.m.
[2018-08-10] MEDS ORDERED: Iodixanol 320 MG/ML 100 ML BOTTLE IV ONE (16:42)
--- NOTE | 2018-08-10 18:00 | CT ---
Date of service: 08/10/2018 PROCEDURE: CTA HEAD AND NECK WITH CONTRAST HISTORY: Subarachnoid hemorrhage right frontal lobe COMPARISON: 08/08/2018. TECHNIQUE: Initial noncontrast head CT was performed. Subsequently, CT angiogram of the head and neck were performed after the intravenous administration of 80 mL of Omnipaque 350. Contiguous 1.5mm thick images were obtained in the axial plane of the neck. 2-D coronal and sagittal MPR images were obtained. Imaging postprocessing was performed with 3-D images also obtained. A delayed contrast head CT was also obtained. This CT exam was performed using one or more of the following dose reduction techniques: Automated exposure control, adjustment of the mA and/or kV according to patient size, and/or use of iterative reconstruction technique. Contrast dose: 100 mL Visipaque 320 Radiation dose: Total exam DLP = inf_radiation_dlp mGy-cm. FINDINGS: HEAD: Right: The intracranial internal carotid artery, and anterior and middle cerebral arteries are widely patent. Left: The intracranial internal carotid artery, and anterior and middle cerebral arteries are widely patent. Posterior circulation: The visualized intracranial vertebral arteries, basilar artery and posterior cerebral arteries are widely patent. There is no endoluminal filling defect to suggest thrombus. There is no intracranial saccular aneurysm. NECK: There is a three vessel aortic arch. There is no stenosis at the origins of the great vessels at the level of the aortic arch. No atherosclerotic calcification or mural plaque present. Right Carotid: On the right, the common carotid, internal carotid and external carotid arteries are widely patent. There is approximately 7 mm linear intraluminal filling defect extending to the posterior wall at the origin of the right internal carotid artery. There is no hemodynamically significant stenosis in the internal carotid artery by NASCET criteria. Left Carotid: On the left, the common carotid, internal carotid and external carotid arteries are widely patent. There is no hemodynamically significant stenosis in the internal carotid artery by NASCET criteria. The vertebral arteries are widely patent. The left vertebral artery is hypoplastic, an anatomic variant. The visualized soft tissues of the neck are normal. The visualized brain and cervical spine are within normal limits. The lung apices are clear. IMPRESSION: 1. No evidence of endoluminal thrombus, occlusion or definite significant stenosis in the intracranial arteries. 2. Linear intraluminal filling defect at the origin of right internal carotid artery extending to the posterior wall is concerning for focal dissection. 2. No evidence of hemodynamically significant stenosis in the internal carotid arteries. 3. Patent bilateral vertebral arteries. Important findings were discussed with nurse Flores on the floor on 08/10/2018 at 5:55 p.m.
--- NOTE | 2018-08-10 18:38 | CP.PCM.CON ---
History of Present Illness - History of Present Illness History of Present Illness: Vascular Surgery Consult Re: R ICA focal dissection HPI: 42M initially presented to ED with slurred speech and reported prior symptoms of worse slurred speech, left sided weakness, and facial droop which have been resolved since admission. He also had a right sided headache helped with Tylenol that prompted repeat CTA head/CTA neck which showed SAH, ischemic infarct, and R ICA focal dissection. Vascular surgery was consulted for the R ICA focal dissection. In discussing with the patient, it was found that he does heavy weightlifting frequently which we suspect may be the initial cause through extreme elevation of his BP. Currently denies fever, chills, vision changes, chest pain, SOB, nausea, vomiting, abd pain, constipation, diarrhea, dysuria, hematuria, melena. PMH: Denies PSH: Denies SH: No Tobacco, EtOH, or Drug use FH: Noncontributory All: NKDA Meds: Denies Review of Systems - Review of Systems All systems: reviewed and no additional remarkable complaints except (as per HPI) Past Patient History - Infectious Disease Hx of Infectious Diseases: None - Past Medical History & Family History Past Medical History?: No - Past Social History Smoking Status: Never Smoked - MUSCULOSKELETAL/RHEUMATOLOGICAL Hx Falls: No - PSYCHIATRIC Hx Substance Use: No - SURGICAL HISTORY Hx Surgeries: Yes Hx Musculoskeletal Surgery: Yes (LEFT LEG SURGERY) - ANESTHESIA Hx Anesthesia: Yes Hx Anesthesia Reactions: No Meds Allergies/Adverse Reactions: Allergies Allergy/AdvReac Type Severity Reaction Status Date / Time No Known Allergies Allergy Verified 08/08/18 04:23 - Medications Medications: Current Medications Acetaminophen (Tylenol 325mg Tab) 650 mg PO Q6 PRN PRN Reason: Pain, moderate (4-7) Last Admin: 08/10/18 13:56 Dose: 650 mg Rosuvastatin Calcium (Crestor) 10 mg PO HS [facility] Last Admin: 08/09/18 21:30 Dose: 10 mg Physical Exam - Constitutional Appears: Non-toxic, No Acute Distress - Head Exam Head Exam: ATRAUMATIC, NORMOCEPHALIC - Eye Exam Eye Exam: EOMI. absent: Scleral icterus - ENT Exam ENT Exam: Mucous Membranes Moist Additional comments: trachea midline - Neck Exam Neck exam: Positive for: Full Rom. Negative for: Tenderness, Thyromegaly Additional comments: no palpable mass - Respiratory Exam Respiratory Exam: NORMAL BREATHING PATTERN. absent: Respiratory Distress - Cardiovascular Exam Cardiovascular Exam: RRR, +S1, +S2 - GI/Abdominal Exam GI & Abdominal Exam: Soft. absent: Distended, Tenderness - Rectal Exam Rectal Exam: Deferred - Extremities Exam Extremities exam: Positive for: normal capillary refill, pedal pulses present. Negative for: pedal edema - Back Exam Back exam: absent: CVA tenderness (L), CVA tenderness (R) - Neurological Exam Neurological exam: Alert, Oriented x3 - Skin Skin Exam: Dry, Warm Results - Vital Signs Recent Vital Signs: Last Vital Signs Temp 97.5 F L 08/10/18 16:30 Pulse 51 L 08/10/18 16:30 Resp 20 08/10/18 16:30 BP 111/64 08/10/18 16:30 Pulse Ox 95 08/10/18 16:30 - Labs Result Diagrams: 08/10/18 11:29 08/10/18 11:29 Labs: Laboratory Results - last 24 hr 08/10/18 08/10/18 08/10/18 11:29 11:29 11:29 WBC 4.7 L RBC 4.93 Hgb 14.3 Hct 43.4 MCV 88.1 MCH 29.1 MCHC 33.0 RDW 12.7 Plt Count 182 MPV 8.9 Neut % (Auto) 69.3 Lymph % (Auto) 22.8 Robertson % (Auto) 5.2 Eos % (Auto) 1.5 Baso % (Auto) 1.2 Neut # (Auto) 3.2 Lymph # (Auto) 1.1 Robertson # (Auto) 0.2 Eos # (Auto) 0.1 Baso # (Auto) 0.1 ESR 1 Sodium 135 Potassium 3.7 Chloride 104 Carbon Dioxide 25 Anion Gap 10 BUN 7 L Creatinine 1.0 Est GFR ( Amer) > 60 Est GFR (Non-Af Amer) > 60 Random Glucose 159 H D Calcium 8.4 L Phosphorus 2.7 Magnesium 1.8 Total Bilirubin 1.0 AST 24 ALT 31 Alkaline Phosphatase 48 C-Reactive Protein < 5.00 Total Protein 6.2 L Albumin 3.8 Globulin 2.4 Albumin/Globulin Ratio 1.6 Vitamin B12 418 25-OH Vitamin D Total 29.0 L Folate 8.3 Homocysteine 13.1 Free T4 TSH 3rd Generation 1.83 08/10/18 11:29 WBC RBC Hgb Hct MCV MCH MCHC RDW Plt Count MPV Neut % (Auto) Lymph % (Auto) Robertson % (Auto) Eos % (Auto) Baso % (Auto) Neut # (Auto) Lymph # (Auto) Robertson # (Auto) Eos # (Auto) Baso # (Auto) ESR Sodium Potassium Chloride Carbon Dioxide Anion Gap BUN Creatinine Est GFR ( Amer) Est GFR (Non-Af Amer) Random Glucose Calcium Phosphorus Magnesium Total Bilirubin AST ALT Alkaline Phosphatase C-Reactive Protein Total Protein Albumin Globulin Albumin/Globulin Ratio Vitamin B12 25-OH Vitamin D Total Folate Homocysteine Free T4 0.79 TSH 3rd Generation - Imaging and Cardiology CTA scan - head/neck Status: Image reviewed by me, Report reviewed by me Assessment & Plan - Assessment and Plan (Free Text) Assessment: 42M with SAH, ischemic infarct, and R ICA focal dissection Plan: Recommend NeuroSx intervention team to determine course of action for these iss ues. No plan for vascular surgery intervention at this time. Recommend less valsalva inducing exercise as this seems likely to be the culprit. Will sign off, reconsult if needed D/W Dr. Mike Damon PGY4
[2018-08-11 06:28] LABS: BASO # 0.1 K/uL (0.0-0.2); BASO % 1.5 % (0.0-2.0); EOS # 0.1 K/uL (0.0-0.7); EOS % 2.4 % (0.0-4.0); HEMOGLOBIN 15.1 g/dL (12.0-18.0); LYMPH # 0.9 K/uL (1.0-4.3); MEAN CELL VOLUME 87.9 fL (80.0-94.0); MEAN CORPUSCULAR HEMOGLOBIN 29.7 pg (27.0-31.0); MEAN CORPUSCULAR HGB CONC 33.8 g/dL (33.0-37.0); MEAN PLATELET VOLUME 8.8 fL (7.2-11.7); MONO # 0.2 K/uL (0.0-0.8); MONO % 5.4 % (0.0-10.0); NEUT # 3.3 K/uL (1.8-7.0); NEUT % 71.7 % (50.0-75.0); RBC 5.09 Mil/uL (4.40-5.90); RED CELL DISTRIBUTION WIDTH 13.1 % (11.5-14.5); WHITE BLOOD COUNT 4.5 K/uL (4.8-10.8)
[2018-08-11 06:58] LABS: ALB/GLOB RATIO 1.5 (1.0-2.1); ALBUMIN 4.1 g/dL (3.5-5.0); ALT/SGPT 21 U/L (21-72); AST/SGOT 27 U/L (17-59); BLOOD UREA NITROGEN 8 mg/dL (9-20); CALCIUM 8.7 mg/dl (8.6-10.4); GFR NON-AFRICAN AMERICAN > 60
--- NOTE | 2018-08-11 08:12 | CP.PCM.PN ---
Subjective - Date & Time of Evaluation Date of Evaluation: 08/10/18 Time of Evaluation: 20:40 - Subjective Subjective: Events noted Patient moved to ICU for close neuro monitoring Patient seen and evaluated No cardiac events noted Review Of Systems Constitutional: Negative for: Fever, Chills Eyes: Negative for: Vision Change ENT: Negative for: Throat Pain Cardiovascular: Negative for: Chest Pain Respiratory: Negative for: Shortness of Breath Gastrointestinal: Negative for: Nausea, Vomiting, Abdominal Pain Genitourinary: Negative for: Dysuria Musculoskeletal: Negative for: Back Pain Skin: Negative for: Rash Neurological: Positive for: Weakness (right hand), Change in Speech Psych: Negative for: Anxiety Physical Exam - Physical Exam Appears: Non-toxic, No Acute Distress Skin: Warm, Dry Head: Normacephalic Eye(s): bilateral: Normal Inspection, PERRL, EOMI Nose: Normal Oral Mucosa: Moist Tongue: Normal Appearing Lips: Normal Appearing Throat: No Erythema, No Exudate Neck: Supple Chest: Symmetrical Cardiovascular: Rhythm Regular Respiratory: No Rales, No Rhonchi, No Wheezing Gastrointestinal/Abdominal: Soft, No Tenderness, No Distention Back: Normal Inspection Extremity: Normal ROM Extremity: Bilateral: Atraumatic, No Pedal Edema, Normal Color And Temperature, Normal ROM Pulses: Left Dorsalis Pedis: Normal, Right Dorsalis Pedis: Normal Neurological/Psych: Oriented x3, No Normal Speech (mild slurred speech) Gait: Steady Other Neurological Findings: No Facial Palsy Extremity: Right: No Drift, Left: No Drift, Upper: No Drift, Lower: No Drift Assessment & Plan - Assessment and Plan (Free Text) Assessment: CVA r/o Cardiac source ECHO with bubble study-No bubble crossover Carotid duplex-Rt ICA dissection No further cardiac work up planned at this time Objective - Vital Signs/Intake and Output Vital Signs (last 24 hours): Temp Pulse Resp BP Pulse Ox 98.2 F 55 L 19 108/60 98 08/11/18 05:00 08/11/18 00:40 08/11/18 00:40 08/11/18 00:40 08/11/18 05:00 Intake and Output: 08/11/18 08/11/18 06:59 18:59 Intake Total 100 0 Output Total 650 Balance -550 0 - Medications Medications: Current Medications Acetaminophen (Tylenol 325mg Tab) 650 mg PO Q6 PRN PRN Reason: Pain, moderate (4-7) Last Admin: 08/10/18 13:56 Dose: 650 mg Rosuvastatin Calcium (Crestor) 10 mg PO HS [facility] Last Admin: 08/10/18 22:21 Dose: 10 mg - Labs Labs: 08/11/18 06:25 08/11/18 06:25 PT 11.8 SECONDS (9.7-12.2) 08/08/18 04:29 INR 1.1 08/08/18 04:29 APTT 37 SECONDS (21-34) H 08/08/18 04:29
--- NOTE | 2018-08-11 13:01 | CP.PCM.PN ---
Subjective - Date & Time of Evaluation Date of Evaluation: 08/11/18 Time of Evaluation: 12:58 - Subjective Subjective: Neuro Follow-Up Note: Mr. Hurtado was evaluated this afternoon in bed in the ICU. He is complaining of a right sided h/a (by temporal/parietal area) that he describes as "throbbing" He rates his h/a now at 7/10, which is better compared to my interaction with him yesterday. His pain is somewhat relieved by Tylenol prn. He denies other symptoms such as dizziness, visual changes, chest pain, palpitations, sob, cough, abd pain, n/v/d. Objective - Vital Signs/Intake and Output Vital Signs (last 24 hours): Temp Pulse Resp BP Pulse Ox 98.8 F 73 15 116/65 99 08/11/18 09:05 08/11/18 10:00 08/11/18 10:00 08/11/18 09:40 08/11/18 10:00 Intake and Output: 08/11/18 08/11/18 06:59 18:59 Intake Total 100 360 Output Total 650 1000 Balance -550 -640 - Medications Medications: Current Medications Acetaminophen (Tylenol 325mg Tab) 650 mg PO Q6 PRN PRN Reason: Pain, moderate (4-7) Last Admin: 08/11/18 09:05 Dose: 650 mg Rosuvastatin Calcium (Crestor) 10 mg PO HS [facility] Last Admin: 08/10/18 22:21 Dose: 10 mg - Labs Labs: 08/11/18 06:25 08/11/18 06:25 PT 11.8 SECONDS (9.7-12.2) 08/08/18 04:29 INR 1.1 08/08/18 04:29 APTT 37 SECONDS (21-34) H 08/08/18 04:29 - Constitutional Appears: Well, Non-toxic, No Acute Distress - Head Exam Head Exam: ATRAUMATIC, NORMAL INSPECTION, NORMOCEPHALIC - Eye Exam Eye Exam: EOMI, Normal appearance, PERRL Pupil Exam: NORMAL ACCOMODATION, PERRL - ENT Exam ENT Exam: Mucous Membranes Moist - Neck Exam Neck Exam: Full ROM, Normal Inspection - Respiratory Exam Respiratory Exam: NORMAL BREATHING PATTERN - Cardiovascular Exam Cardiovascular Exam: REGULAR RHYTHM Additional comments: sbp 128 - Extremities Exam Extremities Exam: Full ROM. absent: Calf Tenderness, Pedal Edema Additional comments: slight weakness to LUE - Back Exam Back Exam: Full ROM, NORMAL INSPECTION - Neurological Exam Neurological Exam: Alert, Awake, CN II-XII Intact, Oriented x3, Reflexes Normal Neuro motor strength exam: Left Upper Extremity: 4 (in classroom tutor 4/5), Right Upper Extremity: 5 (in classroom tutor 5/5), Left Lower Extremity: 5 (dorsiflexion 5/5), Right Lower Extremity: 5 (dorsiflexion 5/5) Additional comments: Speech clear and fluid No facial asymmetry Follows all commands No visual field deficits FROM to all extremities; strength and in classroom tutor is still likely diminished to LUE compared to RUE No pronator drift Sensation and vibration intact and equal No tremors, no clonus - Psychiatric Exam Psychiatric exam: Normal Affect, Normal Mood - Skin Skin Exam: Normal Color Assessment and Plan (1) Acute right MCA stroke Assessment & Plan: Imaging reviewed: -CTA Head and Neck (08/10/18): 1. No evidence of endoluminal thrombus, occlusion or definite significant stenosis in the intracranial arteries. 2. Linear intraluminal filling defect at the origin of right internal carotid artery extending to the posterior wall is concerning for focal dissection. 2. No evidence of hemodynamically significant stenosis in the internal carotid arteries. 3. Patent bilateral vertebral arteries. -CT Head (08/10/18): Curvilinear hyperdensity noted within the right frontal lobe consistent with subarachnoid hemorrhage. Interval development of patchy hypodensity involving the right frontal lobe consistent with ischemic infarction. -ECHO w/ Bubble (08/10/18): no PFO -Head MRA (08/08/18): Normal noncontrast MR angiography of the brain. -MRI Brain (08/08/18): Acute right MCA territory infarction involving the parietal lobe. Mild global parenchymal volume loss, slightly advanced for the patient's age. -CTA head/Neck (08/08/18): 1. No evidence of endoluminal thrombus,occlusion or definite significant stenosis in the intracranial arteries. 2. No evidence of hemodynamically significant stenosis in the internal carotid arteries. 3. Patent bilateral vertebral arteries. -CT head (08/08/18): No acute intracranial abnormality.If there is a persistent focal neurologic deficit and an ongoing clinical concern for acute infarction, an MRI of the brain without intravenous contrast would be a more sensitive modality for evaluation of hyperacute/acute ischemic infarction. Chronic left frontal and left anterior ethmoid sinusitis. -Continue to hold ASA and Plavix 2/[address] Head ordered yesterday afternoon. Still pending results of CT Head done last night. -Continue Statin. -Continue ICU management for now for neuro and BP monitoring. -PT/OT notes reviewed---pt does not need further PT/OT per their notes. -Still pending labs to r/o coagulopathy. -Vascular surgery and neurosurgery saw pt---no surgical interventions at this time per vascular; pending recommendations from neurosurgery. -I discussed the new diagnostic results and plan with the pt and significant other at length. They both understand and agree. -Notify neuro team of any acute changes in pt's condition. Case discussed with Dr. Uribe. Status: Acute
--- NOTE | 2018-08-11 14:41 | CT ---
Date of service: 08/10/2018 PROCEDURE: CT HEAD WITHOUT CONTRAST. HISTORY: subarachnoid hemorrhage COMPARISON: None available. TECHNIQUE: Axial computed tomography images were obtained through the head/brain without intravenous contrast. Radiation dose: Total exam DLP = 1091.09 mGy-cm. This CT exam was performed using one or more of the following dose reduction techniques: Automated exposure control, adjustment of the mA and/or kV according to patient size, and/or use of iterative reconstruction technique. FINDINGS: HEMORRHAGE: No intracranial hemorrhage. BRAIN: Stable lucency at the right frontal and temporal perisylvian parenchyma again evident superiorly compatible with infarct in evolution without focal hemorrhagic conversion. Prior trace subarachnoid hemorrhage in a solitary sulcus at the right frontal lobe laterally is dissipated and barely visible currently with no new intracranial hemorrhage appreciable above or below the tentorium. There remains no significant generalized mass effect. Limited loss of sulcation is appreciated at the infarct site described above. VENTRICLES: Unremarkable. No hydrocephalus. CALVARIUM: Unremarkable. PARANASAL SINUSES: Unremarkable as visualized. No significant inflammatory changes. MASTOID AIR CELLS: Unremarkable as visualized. No inflammatory changes. OTHER FINDINGS: None. IMPRESSION: 1. Interval change in small ischemic infarct at the right frontotemporal distribution surrounding the sylvian fissure with limited local mass effect again evident. No new edema pattern throughout the brain. No evidence of hemorrhagic conversion at this time. 2. Trace right frontal subarachnoid hemorrhage resolving with no new hemorrhage pattern appreciated or increased within the affected sulcus previously shown. Continued clinical and CT monitoring are advised.
--- NOTE | 2018-08-11 15:05 | CP.PCM.PN ---
<Hedy Vazquez - Last Filed: 08/11/18 18:20> Subjective - Date & Time of Evaluation Date of Evaluation: 08/11/18 Time of Evaluation: 09:00 - Subjective Subjective: Cardiology Progress Note: Patient was seen and examined in the AM. He states he continues to have a headache about 7/10 with improvement. He denies other symptoms such as chest pain, palpitations, shortness of breath, cough, abdominal pain, nausea, vomiting, diarrhea or constipation. Objective - Vital Signs/Intake and Output Vital Signs (last 24 hours): Temp Pulse Resp BP Pulse Ox 98.8 F 73 15 116/65 99 08/11/18 09:05 08/11/18 10:00 08/11/18 10:00 08/11/18 09:40 08/11/18 10:00 Intake and Output: 08/11/18 08/11/18 06:59 18:59 Intake Total 100 360 Output Total 650 1000 Balance -550 -640 - Medications Medications: Current Medications Acetaminophen (Tylenol 325mg Tab) 650 mg PO Q6 PRN PRN Reason: Pain, moderate (4-7) Last Admin: 08/11/18 09:05 Dose: 650 mg Rosuvastatin Calcium (Crestor) 10 mg PO HS AMOS Last Admin: 08/10/18 22:21 Dose: 10 mg - Labs Labs: 08/11/18 06:25 08/11/18 06:25 PT 11.8 SECONDS (9.7-12.2) 08/08/18 04:29 INR 1.1 08/08/18 04:29 APTT 37 SECONDS (21-34) H 08/08/18 04:29 - Constitutional Appears: No Acute Distress - Head Exam Head Exam: ATRAUMATIC, NORMAL INSPECTION - Eye Exam Eye Exam: EOMI, Normal appearance - ENT Exam ENT Exam: Mucous Membranes Moist - Respiratory Exam Respiratory Exam: Clear to Ausculation Bilateral, NORMAL BREATHING PATTERN - Cardiovascular Exam Cardiovascular Exam: REGULAR RHYTHM, +S1, +S2 - GI/Abdominal Exam GI & Abdominal Exam: Soft, Normal Bowel Sounds. absent: Tenderness - Neurological Exam Neurological Exam: Alert, Awake, Oriented x3 Assessment and Plan - Assessment and Plan (Free Text) Assessment: 42-year-old man with no significant past medical history came to the ER on 1/12/19 after he developed left facial droop and hand weakness that was noted at around 3 AM when he woke up that day. Acute Right MCA Stroke - Imaging: * ECHO w/ Bubble (08/10/18): no PFO No further cardiac work up planned at this time Case discussed with Dr. Raymond Morris PGY-2 <Jerome Andrade - Last Filed: 08/12/18 21:35> Objective - Vital Signs/Intake and Output Vital Signs (last 24 hours): Temp Pulse Resp BP Pulse Ox 98.4 F 58 L 11 L 102/72 99 08/12/18 20:00 08/12/18 21:20 08/12/18 21:20 08/12/18 21:20 08/12/18 21:20 Intake and Output: 08/12/18 08/13/18 18:59 06:59 Intake Total 1190 Output Total 1150 400 Balance 40 -400 - Medications Medications: Current Medications Acetaminophen (Tylenol 325mg Tab) 650 mg PO Q6 PRN PRN Reason: Pain, moderate (4-7) Last Admin: 08/12/18 15:17 Dose: 650 mg Aspirin (Aspirin) 325 mg PO Q24H AMOS Last Admin: 08/12/18 17:59 Dose: 325 mg Clopidogrel Bisulfate (Plavix) 75 mg PO Q24H AMOS Last Admin: 08/12/18 17:59 Dose: 75 mg Famotidine (Pepcid) 20 mg PO Q24H AMOS Last Admin: 08/12/18 17:59 Dose: 20 mg Lorazepam (Ativan) 0.5 mg IVP ONCE PRN PRN Reason: Anxiety Last Admin: 08/12/18 10:00 Dose: 0.5 mg Rosuvastatin Calcium (Crestor) 10 mg PO HS AMOS Last Admin: 08/11/18 22:31 Dose: 10 mg - Labs Labs: 08/12/18 05:47 08/12/18 05:47 PT 11.8 SECONDS (9.7-12.2) 08/08/18 04:29 INR 1.1 08/08/18 04:29 APTT 37 SECONDS (21-34) H 08/08/18 04:29 Assessment and Plan - Assessment and Plan (Free Text) Assessment: Patient examined and evaluated personally by me. Plan of care d/w the medical housekeeper and as documented
--- NOTE | 2018-08-11 16:28 | CP.CCUPN ---
<Sukhdeep Puentes - Last Filed: 08/11/18 18:13> CCU Subjective - Physician Review Subjective (Free Text): PGY-1 ICU progress note for Dr Tesfaye Patient is seen and examined at bedside. Family by bedside. Patient no acute events overnight. Patient hasno current complaint. Patient states does not want tests done, but later agrees to get them. Patient states he gets reaction to IV contrast, such as nausea and chest tightness. Denies fever, chills, chest pain, sob. no other complaints at this time. Critical Care Time Spent (in minutes): 35 CCU Objective - Vital Signs / Intake & Output Vital Signs (Last 4 hours): Vital Signs Temp Pulse Ox 08/11/18 13:00 98.6 F 98 Intake and Output (Last 8hrs): Intake & Output 08/11/18 08/11/18 08/11/18 06:59 14:59 22:59 Intake Total 0 1240 440 Output Total 250 1200 Balance -250 40 440 Intake: Oral 0 1240 440 Output: Urine 250 1200 Urine, Voided 250 1200 Other: # Voids Urine, Voided 1 1 # Bowel Movements 1 - Physical Exam Head: Positive for: Atraumatic, Normocephalic Pupils: Positive for: PERRL Extroacular Muscles: Positive for: EOMI Conjunctiva: Positive for: Normal Mouth: Positive for: Moist Mucous Membranes Neck: Positive for: Normal Range of Motion Respiratory/Chest: Positive for: Good Air Exchange. Negative for: Respiratory Distress, Wheezes Cardiovascular: Positive for: Regular Rate and Rhythm Abdomen: Positive for: Tenderness, Distention, Normal Bowel Sounds Upper Extremity: Positive for: Normal Inspection Lower Extremity: Positive for: Normal Inspection Neurological: Positive for: GCS=15, CN II-XII Intact, Speech Normal Skin: Positive for: Warm, Dry, Rashes, Normal Color Psychiatric: Positive for: Alert, Oriented x 3, Normal Insight, Normal Concentration - Medications Active Medications: Active Medications Generic Name Dose Route Start Last Admin Trade Name Freq PRN Reason Stop Dose Admin Acetaminophen 650 mg 08/08/18 10:24 08/11/18 09:05 Tylenol 325mg Tab PO 650 mg Q6 PRN Administration Pain, moderate (4-7) Rosuvastatin Calcium 10 mg 08/08/18 22:00 08/10/18 22:21 Crestor PO 10 mg HS AMOS Administration - Patient Studies Lab Studies: Lab Studies 08/11/18 08/11/18 08/11/18 Range/Units 12:50 07:58 06:25 WBC (4.8-10.8) K/uL RBC (4.40-5.90) Mil/uL Hgb (12.0-18.0) g/dL Hct (35.0-51.0) % MCV (80.0-94.0) fL MCH (27.0-31.0) pg MCHC (33.0-37.0) g/dL RDW (11.5-14.5) % Plt Count (130-400) K/uL MPV (7.2-11.7) fL Neut % (Auto) (50.0-75.0) % Lymph % (Auto) (20.0-40.0) % [place] % (Auto) (0.0-10.0) % Eos % (Auto) (0.0-4.0) % Baso % (Auto) (0.0-2.0) % Neut # (Auto) (1.8-7.0) K/uL Lymph # (Auto) (1.0-4.3) K/uL [place] # (Auto) (0.0-0.8) K/uL Eos # (Auto) (0.0-0.7) K/uL Baso # (Auto) (0.0-0.2) K/uL Sodium 132 (132-148) mmol/L Potassium 4.3 (3.6-5.2) mmol/L Chloride 103 (98-107) mmol/L Carbon Dioxide 23 (22-30) mmol/L Anion Gap 11 (10-20) BUN 8 L (9-20) mg/dL Creatinine 0.9 (0.8-1.5) mg/dL Est GFR ( Amer) > 60 Est GFR (Non-Af Amer) > 60 POC Glucose (mg/dL) 72 86 (65-110) mg/dL Random Glucose 95 D (75-110) mg/dL Calcium 8.7 (8.6-10.4) mg/dl Phosphorus 3.0 (2.5-4.5) mg/dL Magnesium 1.8 (1.6-2.3) mg/dL Total Bilirubin 1.0 (0.2-1.3) mg/dL AST 27 (17-59) U/L ALT 21 D (21-72) U/L Alkaline Phosphatase 44 (38-126) U/L Total Protein 6.8 (6.3-8.3) g/dL Albumin 4.1 (3.5-5.0) g/dL Globulin 2.8 (2.2-3.9) gm/dL Albumin/Globulin Ratio 1.5 (1.0-2.1) 08/11/18 08/10/18 Range/Units 06:25 22:15 WBC 4.5 L (4.8-10.8) K/uL RBC 5.09 (4.40-5.90) Mil/uL Hgb 15.1 (12.0-18.0) g/dL Hct 44.7 (35.0-51.0) % MCV 87.9 (80.0-94.0) fL MCH 29.7 (27.0-31.0) pg MCHC 33.8 (33.0-37.0) g/dL RDW 13.1 (11.5-14.5) % Plt Count 173 (130-400) K/uL MPV 8.8 (7.2-11.7) fL Neut % (Auto) 71.7 (50.0-75.0) % Lymph % (Auto) 19.0 L (20.0-40.0) % [place] % (Auto) 5.4 (0.0-10.0) % Eos % (Auto) 2.4 (0.0-4.0) % Baso % (Auto) 1.5 (0.0-2.0) % Neut # (Auto) 3.3 (1.8-7.0) K/uL Lymph # (Auto) 0.9 L (1.0-4.3) K/uL [place] # (Auto) 0.2 (0.0-0.8) K/uL Eos # (Auto) 0.1 (0.0-0.7) K/uL Baso # (Auto) 0.1 (0.0-0.2) K/uL Sodium (132-148) mmol/L Potassium (3.6-5.2) mmol/L Chloride (98-107) mmol/L Carbon Dioxide (22-30) mmol/L Anion Gap (10-20) BUN (9-20) mg/dL Creatinine (0.8-1.5) mg/dL Est GFR ( Amer) Est GFR (Non-Af Amer) POC Glucose (mg/dL) 116 H (65-110) mg/dL Random Glucose (75-110) mg/dL Calcium (8.6-10.4) mg/dl Phosphorus (2.5-4.5) mg/dL Magnesium (1.6-2.3) mg/dL Total Bilirubin (0.2-1.3) mg/dL AST (17-59) U/L ALT (21-72) U/L Alkaline Phosphatase (38-126) U/L Total Protein (6.3-8.3) g/dL Albumin (3.5-5.0) g/dL Globulin (2.2-3.9) gm/dL Albumin/Globulin Ratio (1.0-2.1) Laboratory Results - last 24 hr 08/10/18 08/11/18 08/11/18 22:15 06:25 06:25 WBC 4.5 L RBC 5.09 Hgb 15.1 Hct 44.7 MCV 87.9 MCH 29.7 MCHC 33.8 RDW 13.1 Plt Count 173 MPV 8.8 Neut % (Auto) 71.7 Lymph % (Auto) 19.0 L [place] % (Auto) 5.4 Eos % (Auto) 2.4 Baso % (Auto) 1.5 Neut # (Auto) 3.3 Lymph # (Auto) 0.9 L [place] # (Auto) 0.2 Eos # (Auto) 0.1 Baso # (Auto) 0.1 Sodium 132 Potassium 4.3 Chloride 103 Carbon Dioxide 23 Anion Gap 11 BUN 8 L Creatinine 0.9 Est GFR ( Amer) > 60 Est GFR (Non-Af Amer) > 60 POC Glucose (mg/dL) 116 H Random Glucose 95 D Calcium 8.7 Phosphorus 3.0 Magnesium 1.8 Total Bilirubin 1.0 AST 27 ALT 21 D Alkaline Phosphatase 44 Total Protein 6.8 Albumin 4.1 Globulin 2.8 Albumin/Globulin Ratio 1.5 08/11/18 08/11/18 07:58 12:50 WBC RBC Hgb Hct MCV MCH MCHC RDW Plt Count MPV Neut % (Auto) Lymph % (Auto) [place] % (Auto) Eos % (Auto) Baso % (Auto) Neut # (Auto) Lymph # (Auto) [place] # (Auto) Eos # (Auto) Baso # (Auto) Sodium Potassium Chloride Carbon Dioxide Anion Gap BUN Creatinine Est GFR ( Amer) Est GFR (Non-Af Amer) POC Glucose (mg/dL) 86 72 Random Glucose Calcium Phosphorus Magnesium Total Bilirubin AST ALT Alkaline Phosphatase Total Protein Albumin Globulin Albumin/Globulin Ratio Radiology Impressions: Radiology Impressions Head CT 08/10/18 14:28 IMPRESSION: Curvilinear hyperdensity noted within the right frontal lobe consistent with subarachnoid hemorrhage. Interval development of patchy hypodensity involving the right frontal lobe consistent with ischemic infarction. Finding discussed with the patient's RN Jenni on 08/10/18 at 4:11 p.m. Head/Neck CTA 08/10/18 16:21 IMPRESSION: 1. No evidence of endoluminal thrombus, occlusion or definite significant stenosis in the intracranial arteries. 2. Linear intraluminal filling defect at the origin of right internal carotid artery extending to the posterior wall is concerning for focal dissection. 2. No evidence of hemodynamically significant stenosis in the internal carotid arteries. 3. Patent bilateral vertebral arteries. Important findings were discussed with nurse Sandra on the floor on 08/10/2018 at 5:[address] 08/10/18 23:00 IMPRESSION: 1. Interval change in small ischemic infarct at the right frontotemporal distribution surrounding the sylvian fissure with limited local mass effect again evident. No new edema pattern throughout the brain. No evidence of hemorrhagic conversion at this time. 2. Trace right frontal subarachnoid hemorrhage resolving with no new hemorrhage pattern appreciated or increased within the affected sulcus previously shown. Continued clinical and CT monitoring are advised. Fingerstick Blood Sugar Results: 86 Critical Care Progress Note - Nutrition Nutrition: Nutrition Category Date Time Status Heart Healthy Diet [DIET] Diets 08/08/18 Breakfast Active Assessment/Plan - Assessment and Plan (Free Text) Plan: Patient is a 42 y/o M with no significant PMHx who was admitted for CVA. Pt was transferred to ICU after complaining of worsening headache, and repeat head CT showed right frontal lobe subarachnoid hemorrhage. Pt also has a linear intraluminal filling defect at the origin of right ICA concerning for focal dissection on head/neck CTA. Neuro head CT 08/10 @ 11 pm - trace right frontal subarachnoid hemorrhage resolving with no new hemorrhage head CT 08/10 - Curvilinear hyperdensity noted within the R frontal lobe consistent with subarachnoid hemorrhage. Interval development of patchy hypodensity involving the R frontal lobe consistent with ischemic infarction. Head/Neck CTA 08/10 - linear intraluminal filling defect at the origin of R ICA extending to the posterior wall concerning for focal dissection Brain MRI 08/08 - acute R MCA territory infarction involing the parietal lobe hold ASA and Plavix secondary to SAH Continue Crestor 10 mg f/u labs to r/o coagulopathy vascular surgery consulted - no current interventions planned MRI w contrast and MRA neck without contrast - Originally placed stat as per Dr Uribe - Patient refused at first, stated he was tired of tests and IV contrast giving reaction, such as nausea and chest pressure. Patient later states he will get it done, MRI service not available - ordered test for the am Dr Singh neuro interventional surgery - spoke with ROSALINDA Parks, planning for angiogram neck with possibility of stent on 08/13 8 am - requesting cervical spine MRI - NPO after midnight on friday Tylenol prn for headaches CV Echo with bubble study 08/08 - normal; no bubbles crossing over Crestor 10 mg lipid panel - TGs 87, Cholesterol 203, LDL 110, HDL 59 Respiratory on RA with SpO2 98% no active issues GI - HHD Prophylaxis DVT - SCDs; anticoags contraindicated GI - HHD Plan discussed with Dr Brien Puentes, PGY-1 - Date & Time Date: 08/11/18 Time: 14:00 <Cayden Tesfaye S - Last Filed: 08/11/18 18:33> CCU Objective - Vital Signs / Intake & Output Intake and Output (Last 8hrs): Intake & Output 08/11/18 08/11/18 08/11/18 06:59 14:59 22:59 Intake Total 0 1240 440 Output Total 250 1200 Balance -250 40 440 Intake: Oral 0 1240 440 Output: Urine 250 1200 Urine, Voided 250 1200 Other: # Voids Urine, Voided 1 1 # Bowel Movements 1 - Medications Active Medications: Active Medications Generic Name Dose Route Start Last Admin Trade Name Freq PRN Reason Stop Dose Admin Acetaminophen 650 mg 08/08/18 10:24 08/11/18 09:05 Tylenol 325mg Tab PO 650 mg Q6 PRN Administration Pain, moderate (4-7) Aspirin 325 mg 08/11/18 18:30 Aspirin PO Q24H AMOS Clopidogrel Bisulfate 75 mg 08/11/18 18:15 Plavix PO Q24H AMOS Famotidine 20 mg 08/11/18 18:30 Pepcid PO Q24H AMOS Rosuvastatin Calcium 10 mg 08/08/18 22:00 08/10/18 22:21 Crestor PO 10 mg HS AMOS Administration - Patient Studies Lab Studies: Lab Studies 08/11/18 08/11/18 08/11/18 Range/Units 12:50 07:58 06:25 WBC (4.8-10.8) K/uL RBC (4.40-5.90) Mil/uL Hgb (12.0-18.0) g/dL Hct (35.0-51.0) % MCV (80.0-94.0) fL MCH (27.0-31.0) pg MCHC (33.0-37.0) g/dL RDW (11.5-14.5) % Plt Count (130-400) K/uL MPV (7.2-11.7) fL Neut % (Auto) (50.0-75.0) % Lymph % (Auto) (20.0-40.0) % [place] % (Auto) (0.0-10.0) % Eos % (Auto) (0.0-4.0) % Baso % (Auto) (0.0-2.0) % Neut # (Auto) (1.8-7.0) K/uL Lymph # (Auto) (1.0-4.3) K/uL [place] # (Auto) (0.0-0.8) K/uL Eos # (Auto) (0.0-0.7) K/uL Baso # (Auto) (0.0-0.2) K/uL Sodium 132 (132-148) mmol/L Potassium 4.3 (3.6-5.2) mmol/L Chloride 103 (98-107) mmol/L Carbon Dioxide 23 (22-30) mmol/L Anion Gap 11 (10-20) BUN 8 L (9-20) mg/dL Creatinine 0.9 (0.8-1.5) mg/dL Est GFR ( Amer) > 60 Est GFR (Non-Af Amer) > 60 POC Glucose (mg/dL) 72 86 (65-110) mg/dL Random Glucose 95 D (75-110) mg/dL Calcium 8.7 (8.6-10.4) mg/dl Phosphorus 3.0 (2.5-4.5) mg/dL Magnesium 1.8 (1.6-2.3) mg/dL Total Bilirubin 1.0 (0.2-1.3) mg/dL AST 27 (17-59) U/L ALT 21 D (21-72) U/L Alkaline Phosphatase 44 (38-126) U/L Total Protein 6.8 (6.3-8.3) g/dL Albumin 4.1 (3.5-5.0) g/dL Globulin 2.8 (2.2-3.9) gm/dL Albumin/Globulin Ratio 1.5 (1.0-2.1) 08/11/18 08/10/18 Range/Units 06:25 22:15 WBC 4.5 L (4.8-10.8) K/uL RBC 5.09 (4.40-5.90) Mil/uL Hgb 15.1 (12.0-18.0) g/dL Hct 44.7 (35.0-51.0) % MCV 87.9 (80.0-94.0) fL MCH 29.7 (27.0-31.0) pg MCHC 33.8 (33.0-37.0) g/dL RDW 13.1 (11.5-14.5) % Plt Count 173 (130-400) K/uL MPV 8.8 (7.2-11.7) fL Neut % (Auto) 71.7 (50.0-75.0) % Lymph % (Auto) 19.0 L (20.0-40.0) % [place] % (Auto) 5.4 (0.0-10.0) % Eos % (Auto) 2.4 (0.0-4.0) % Baso % (Auto) 1.5 (0.0-2.0) % Neut # (Auto) 3.3 (1.8-7.0) K/uL Lymph # (Auto) 0.9 L (1.0-4.3) K/uL [place] # (Auto) 0.2 (0.0-0.8) K/uL Eos # (Auto) 0.1 (0.0-0.7) K/uL Baso # (Auto) 0.1 (0.0-0.2) K/uL Sodium (132-148) mmol/L Potassium (3.6-5.2) mmol/L Chloride (98-107) mmol/L Carbon Dioxide (22-30) mmol/L Anion Gap (10-20) BUN (9-20) mg/dL Creatinine (0.8-1.5) mg/dL Est GFR ( Amer) Est GFR (Non-Af Amer) POC Glucose (mg/dL) 116 H (65-110) mg/dL Random Glucose (75-110) mg/dL Calcium (8.6-10.4) mg/dl Phosphorus (2.5-4.5) mg/dL Magnesium (1.6-2.3) mg/dL Total Bilirubin (0.2-1.3) mg/dL AST (17-59) U/L ALT (21-72) U/L Alkaline Phosphatase (38-126) U/L Total Protein (6.3-8.3) g/dL Albumin (3.5-5.0) g/dL Globulin (2.2-3.9) gm/dL Albumin/Globulin Ratio (1.0-2.1) Laboratory Results - last 24 hr 08/10/18 08/11/18 08/11/18 22:15 06:25 06:25 WBC 4.5 L RBC 5.09 Hgb 15.1 Hct 44.7 MCV 87.9 MCH 29.7 MCHC 33.8 RDW 13.1 Plt Count 173 MPV 8.8 Neut % (Auto) 71.7 Lymph % (Auto) 19.0 L [place] % (Auto) 5.4 Eos % (Auto) 2.4 Baso % (Auto) 1.5 Neut # (Auto) 3.3 Lymph # (Auto) 0.9 L [place] # (Auto) 0.2 Eos # (Auto) 0.1 Baso # (Auto) 0.1 Sodium 132 Potassium 4.3 Chloride 103 Carbon Dioxide 23 Anion Gap 11 BUN 8 L Creatinine 0.9 Est GFR ( Amer) > 60 Est GFR (Non-Af Amer) > 60 POC Glucose (mg/dL) 116 H Random Glucose 95 D Calcium 8.7 Phosphorus 3.0 Magnesium 1.8 Total Bilirubin 1.0 AST 27 ALT 21 D Alkaline Phosphatase 44 Total Protein 6.8 Albumin 4.1 Globulin 2.8 Albumin/Globulin Ratio 1.5 08/11/18 08/11/18 07:58 12:50 WBC RBC Hgb Hct MCV MCH MCHC RDW Plt Count MPV Neut % (Auto) Lymph % (Auto) [place] % (Auto) Eos % (Auto) Baso % (Auto) Neut # (Auto) Lymph # (Auto) [place] # (Auto) Eos # (Auto) Baso # (Auto) Sodium Potassium Chloride Carbon Dioxide Anion Gap BUN Creatinine Est GFR ( Amer) Est GFR (Non-Af Amer) POC Glucose (mg/dL) 86 72 Random Glucose Calcium Phosphorus Magnesium Total Bilirubin AST ALT Alkaline Phosphatase Total Protein Albumin Globulin Albumin/Globulin Ratio Radiology Impressions: Radiology Impressions Head CT 08/10/18 23:00 IMPRESSION: 1. Interval change in small ischemic infarct at the right frontotemporal distribution surrounding the sylvian fissure with limited local mass effect again evident. No new edema pattern throughout the brain. No evidence of hemorrhagic conversion at this time. 2. Trace right frontal subarachnoid hemorrhage resolving with no new hemorrhage pattern appreciated or increased within the affected sulcus previously shown. Continued clinical and CT monitoring are advised. Critical Care Progress Note - Nutrition Nutrition: Nutrition Category Date Time Status Heart Healthy Diet [DIET] Diets 08/08/18 Breakfast Active Attending/Attestation - Attestation I have personally seen and examined this patient.: Yes I have fully participated in the care of the patient.: Yes I have reviewed all pertinent clinical information: Yes Notes (Text): 08/11/18 18:31 Patient seen and examined in the intensive care unit. Patient was transferred to ICU yesterday evening, complaining of worsening headache, and repeat head CT showed right frontal lobe subarachnoid hemorrhage. Pt also has a linear intraluminal filling defect at the origin of right ICA concerning for focal dissection on head/neck CTA. Seen by vascular surgery and neurosurgery Interventional neuro evaluation Repeat MRI with dissection protocol. Patient refusing and wants to get it done tomorrow Continue present treatment for now
--- NOTE | 2018-08-11 18:33 | CP.PCM.CON ---
History of Present Illness - History of Present Illness History of Present Illness: is a 6o year old male with no known PmHx. Pt.was feeling tired and weak after work on so he spent the evening sleeping. Friday he had a day off and felt back to himself. Upon waking up on friday morning 0300a noted weakness in his left hand and a left facial droop. He decided to try to continue with his morning routine when he almost fell when opening the refrigerator door. He then woke his partner up and she gave him 2 Aspirins and they came to the ED. CT scan of the head had no significant changes. CTA head/neck no LVO, MRI of the brain-Right frontal/parietal lobe acute ischemic stroke. Review of Systems - Constitutional Constitutional: As Per HPI Past Patient History - Past Medical History & Family History Past Medical History?: No - Past Social History Smoking Status: Former Smoker Alcohol: Occasional Home Situation {Lives}: Other Domestic Violence: Negative - CARDIAC Hx Cardiac Disorders: No - PULMONARY Hx Respiratory Disorders: No - NEUROLOGICAL Hx Neurological Disorder: No - HEENT Hx HEENT Problems: No - RENAL Hx Chronic Kidney Disease: No - ENDOCRINE/METABOLIC Hx Endocrine Disorders: No - HEMATOLOGICAL/ONCOLOGICAL Hx Blood Disorders: No - INTEGUMENTARY Hx Dermatological Problems: No - MUSCULOSKELETAL/RHEUMATOLOGICAL Hx Musculoskeletal Disorders: No Hx Falls: No - GASTROINTESTINAL Hx Gastrointestinal Disorders: No - PSYCHIATRIC Hx Substance Use: No - SURGICAL HISTORY Hx Surgeries: Yes Hx Musculoskeletal Surgery: Yes (LEFT LEG SURGERY) - ANESTHESIA Hx Anesthesia: Yes Hx Anesthesia Reactions: No Meds Allergies/Adverse Reactions: Allergies Allergy/AdvReac Type Severity Reaction Status Date / Time No Known Allergies Allergy Verified 08/08/18 04:23 - Medications Medications: Current Medications Acetaminophen (Tylenol 325mg Tab) 650 mg PO Q6 PRN PRN Reason: Pain, moderate (4-7) Last Admin: 08/11/18 09:05 Dose: 650 mg Aspirin (Aspirin) 325 mg PO Q24H AMOS Clopidogrel Bisulfate (Plavix) 75 mg PO Q24H AMOS Famotidine (Pepcid) 20 mg PO Q24H AMOS Rosuvastatin Calcium (Crestor) 10 mg PO HS AMOS Last Admin: 08/10/18 22:21 Dose: 10 mg Physical Exam - Constitutional Appears: Well - Head Exam Head Exam: ATRAUMATIC, NORMAL INSPECTION - Eye Exam Eye Exam: EOMI - Neck Exam Neck exam: Positive for: Full Rom - Respiratory Exam Respiratory Exam: NORMAL BREATHING PATTERN - Rectal Exam Rectal Exam: Deferred - Extremities Exam Extremities exam: Positive for: full ROM - Neurological Exam Neurological exam: Alert, CN II-XII Intact Results - Vital Signs Recent Vital Signs: Last Vital Signs Temp 98.6 F 08/11/18 13:00 Pulse 73 08/11/18 10:00 Resp 15 08/11/18 10:00 BP 116/65 08/11/18 09:40 Pulse Ox 98 08/11/18 13:00 - Labs Result Diagrams: 08/11/18 06:25 08/11/18 06:25 Labs: Laboratory Results - last 24 hr 08/10/18 08/11/18 08/11/18 22:15 06:25 06:25 WBC 4.5 L RBC 5.09 Hgb 15.1 Hct 44.7 MCV 87.9 MCH 29.7 MCHC 33.8 RDW 13.1 Plt Count 173 MPV 8.8 Neut % (Auto) 71.7 Lymph % (Auto) 19.0 L Crowley % (Auto) 5.4 Eos % (Auto) 2.4 Baso % (Auto) 1.5 Neut # (Auto) 3.3 Lymph # (Auto) 0.9 L Crowley # (Auto) 0.2 Eos # (Auto) 0.1 Baso # (Auto) 0.1 Sodium 132 Potassium 4.3 Chloride 103 Carbon Dioxide 23 Anion Gap 11 BUN 8 L Creatinine 0.9 Est GFR ( Amer) > 60 Est GFR (Non-Af Amer) > 60 POC Glucose (mg/dL) 116 H Random Glucose 95 D Calcium 8.7 Phosphorus 3.0 Magnesium 1.8 Total Bilirubin 1.0 AST 27 ALT 21 D Alkaline Phosphatase 44 Total Protein 6.8 Albumin 4.1 Globulin 2.8 Albumin/Globulin Ratio 1.5 08/11/18 08/11/18 07:58 12:50 WBC RBC Hgb Hct MCV MCH MCHC RDW Plt Count MPV Neut % (Auto) Lymph % (Auto) Crowley % (Auto) Eos % (Auto) Baso % (Auto) Neut # (Auto) Lymph # (Auto) Crowley # (Auto) Eos # (Auto) Baso # (Auto) Sodium Potassium Chloride Carbon Dioxide Anion Gap BUN Creatinine Est GFR ( Amer) Est GFR (Non-Af Amer) POC Glucose (mg/dL) 86 72 Random Glucose Calcium Phosphorus Magnesium Total Bilirubin AST ALT Alkaline Phosphatase Total Protein Albumin Globulin Albumin/Globulin Ratio Assessment & Plan - Assessment and Plan (Free Text) Assessment: is a 42 year old male patient with a remote history of smoking as the only risk factor for stroke. On admission CT of the head no significant changes and CTA of the head/neck no LVO. MRI of the brain showed a right frontal/parietal lobe acute ischemic stroke. NEUROLOGICAL EXAM: Mental Status: Awake, alert and in no apparent distress. Oriented to person place and time. Language function is normal. Recent memory and concentration are normal. Cranial Nerves: PERRL, Extraocular movements intact, visual fung were full. Facial sensation was intact to light touch. There was no facial asymmetry. The palate was upgoing symmetrically and tongue midline. Motor: Bulk and tone were normal. Power 5/5 upper and lower extremities. Fine finger movements were symmetric. There was no pronator drift. Reflexes: 2+ in upper extremities, 2+ in lower extremities. Toes were down going. Sensory: Intact to light touch. Coordination: Srsynl-dniu-ejqtph was without dysmetria. Gait: Deferred NIHSS: 0 Plan: PLAN 1-Resume Plavix 75mg daily and ASA 325mg daily 2-Agree with MRA of the neck w/o contrast 3-NPO after 12MN 08/13/18 4-Cerebral Angiogram 08/13/18 @ 0800am 5-P2Y12 0400am 08/13/18 - Date & Time Date: 08/11/18 Time: 18:10
--- NOTE | 2018-08-11 22:20 | CARD ---
APPROVED REPORT Date of service: 08/10/2018 EXAM: Two-dimensional and M-mode echocardiogram with Doppler and color Doppler. Other Information Quality : GoodRhythm : NSR INDICATION CVA/TIA 2D DIMENSIONS IVSd0.9 (0.7-1.1cm)Aortic Root (2D)2.8 (2.0-3.7cm) LVDd4.0 (3.9-5.9cm)PWd1.1 (0.7-1.1cm) LA Ayknjl56 (18-58mL)LVDs2.9 (2.5-4.0cm) FS (%) 27.2 %LVEF (%)53.5 (>50%) Aortic Valve AoV Peak Eyxvevad645.9cm/[place] Peak GR.5mmHg Mitral Valve MV E Njlawiti26.7cm/sMV A Gjvqjqzf13.6cm/sE/A ratio0.7 TDI Lateral E' Peak V9.45cm/sMedial E' Peak V10.29cm/sE/Lateral E'6.0 E/Medial E'5.5 Tricuspid Valve TR Peak Twbpwptw849ng/sTR Peak Gr.[id number] LEFT VENTRICLE The left ventricle is normal size. There is normal left ventricular wall thickness. Left ventricle systolic function is low normal. The Ejection Fraction is 50-55%. There is normal LV segmental wall motion. Transmitral Doppler flow pattern is abnormal.Grade I-abnormal relaxation pattern. No left ventricle thrombus noted on this study. RIGHT VENTRICLE The right ventricle is normal size. The right ventricular systolic function is normal. ATRIA The left atrium size is normal. The right atrium size is normal. AORTIC VALVE The aortic valve is trileaflet. No aortic regurgitation is present. There is no aortic valvular stenosis. There is no aortic valvular vegetation. MITRAL VALVE The mitral valve is normal in structure. There is no evidence of mitral valve prolapse. There is no mitral valve stenosis. Mitral regurgitation is mild. TRICUSPID VALVE The tricuspid valve is normal. There is mild tricuspid regurgitation. Right ventricular systolic pressure is estimated at less than 30 mmHg. There is no pulmonary hypertension. There is no tricuspid valve prolapse or vegetation. There is no tricuspid valve stenosis. PULMONIC VALVE The pulmonary valve is normal in structure. There is trace to mild pulmonic valvular regurgitation. There is no pulmonic valvular stenosis. GREAT VESSELS The aortic root is normal in size. The IVC is normal in size and collapses >50% with inspiration. PERICARDIAL EFFUSION There is no pericardial effusion. There is no pleural effusion. <Conclusion> The left ventricle is normal size. Left ventricle systolic function is low normal. The Ejection Fraction is 50-55%. Transmitral Doppler flow pattern is abnormal.Grade I-abnormal relaxation pattern. The right ventricle is normal size. The right ventricular systolic function is normal. The left atrium size is normal. The right atrium size is normal. Mitral regurgitation is mild. There is mild tricuspid regurgitation. There is trace to mild pulmonic valvular regurgitation. Bubble study done is normal.
[2018-08-12] MEDS ORDERED: Gadodiamide 287 mg/ml 20 ml IV ONE (01:51)
[2018-08-12 06:12] LABS: BASO # 0.1 K/uL (0.0-0.2); BASO % 1.1 % (0.0-2.0); EOS # 0.2 K/uL (0.0-0.7); EOS % 3.7 % (0.0-4.0); HEMOGLOBIN 15.6 g/dL (12.0-18.0); LYMPH # 1.3 K/uL (1.0-4.3); LYMPH % 22.9 % (20.0-40.0); MEAN CORPUSCULAR HEMOGLOBIN 29.8 pg (27.0-31.0); MEAN CORPUSCULAR HGB CONC 33.9 g/dL (33.0-37.0); MEAN PLATELET VOLUME 9.2 fL (7.2-11.7); MONO # 0.4 K/uL (0.0-0.8); MONO % 6.8 % (0.0-10.0); NEUT # 3.8 K/uL (1.8-7.0); NEUT % 65.5 % (50.0-75.0); NRBC % 0.1 % (0.0-2.0); RBC 5.23 Mil/uL (4.40-5.90); RED CELL DISTRIBUTION WIDTH 13.2 % (11.5-14.5); WHITE BLOOD COUNT 5.7 K/uL (4.8-10.8)
[2018-08-12 06:25] LABS: ALB/GLOB RATIO 1.5 (1.0-2.1); ALBUMIN 4.1 g/dL (3.5-5.0); ALT/SGPT 25 U/L (21-72); AST/SGOT 23 U/L (17-59); BLOOD UREA NITROGEN 12 mg/dL (9-20); CALCIUM 8.7 mg/dl (8.6-10.4); GFR NON-AFRICAN AMERICAN > 60
--- NOTE | 2018-08-12 06:41 | CON ---
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 Initial CT was basically negative, but he was thought to be having CVA. Ultimately, over the course of the past three days, it has become clear that he did have a small embolic stroke. 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 Fortunately, he has had a fairly good recovery and really is only left with a mild headache and at this point in time is otherwise asymptomatic. We were consulted as his second CT showed a very tiny amount of blood in one sulcus. On interviewing him today, again his only complaint is the mild headache. PAST MEDICAL HISTORY: Reviewed in the EMR. PHYSICAL EXAMINATION GENERAL: He is bright, awake and alert. HEENT: Pupils are equal and reactive. EOMs are full. Face is symmetric. NEUROLOGIC: He has 5/5 strength in all four extremities. He has no drift. Sensory exam is grossly intact. LABORATORY DATA: were reviewed. He had a tiny amount of subarachnoid hemorrhage in one sulcus in the area of the right frontal infarct. It has been stable on the subsequent CT. IMPRESSION: If it is believed that he would benefit from anticoagulation, we would not have an objection to it. Certainly, he should be carefully monitored, so he is kept on the lower end of the spectrum of anticoagulation. Obviously, there is some risk of further transforming his infarct into a hemorrhagic one, but I think the risk of a thromboembolic infarction markedly outweighs the risk of hemorrhage. In addition, as discussed with Dr. Mckeon, it seems he might be a better candidate to have a stent placed, and obviously this is not my domain and I would leave it up to the other treating physicians. Alfred Catalan MD
--- NOTE | 2018-08-12 10:28 | CP.PCM.PN ---
<Kishan Vazquezssyca AbbeyBryson - Last Filed: 08/12/18 15:09> Subjective - Date & Time of Evaluation Date of Evaluation: 08/12/18 Time of Evaluation: 11:00 - Subjective Subjective: Cardiology Progress Note: Patient was seen and examined at bedside. Patient states he is feeling well and denies any complaints at this time. Patient denies chest pain, shortness of breath, palpitations, nausea, vomiting, fever or chills. Objective - Vital Signs/Intake and Output Vital Signs (last 24 hours): Temp Pulse Resp BP Pulse Ox 98.2 F 53 L 18 99/41 L 96 08/12/18 04:00 08/12/18 06:01 08/12/18 06:01 08/12/18 06:01 08/12/18 06:01 Intake and Output: 08/12/18 08/12/18 06:59 18:59 Intake Total 300 Output Total 900 Balance -600 - Medications Medications: Current Medications Acetaminophen (Tylenol 325mg Tab) 650 mg PO Q6 PRN PRN Reason: Pain, moderate (4-7) Last Admin: 08/11/18 09:05 Dose: 650 mg Aspirin (Aspirin) 325 mg PO Q24H AMOS Last Admin: 08/11/18 18:45 Dose: 325 mg Clopidogrel Bisulfate (Plavix) 75 mg PO Q24H [facility] Last Admin: 08/11/18 18:45 Dose: 75 mg Famotidine (Pepcid) 20 mg PO Q24H AMOS Last Admin: 08/11/18 18:46 Dose: 20 mg Lorazepam (Ativan) 0.5 mg IVP ONCE PRN PRN Reason: Anxiety Last Admin: 08/12/18 10:00 Dose: 0.5 mg Rosuvastatin Calcium (Crestor) 10 mg PO HS AMOS Last Admin: 08/11/18 22:31 Dose: 10 mg - Labs Labs: 08/12/18 05:47 08/12/18 05:47 PT 11.8 SECONDS (9.7-12.2) 08/08/18 04:29 INR 1.1 08/08/18 04:29 APTT 37 SECONDS (21-34) H 08/08/18 04:29 - Constitutional Appears: No Acute Distress - Head Exam Head Exam: NORMAL INSPECTION - Eye Exam Eye Exam: Normal appearance - ENT Exam ENT Exam: Mucous Membranes Moist - Respiratory Exam Respiratory Exam: Clear to Ausculation Bilateral, NORMAL BREATHING PATTERN - Cardiovascular Exam Cardiovascular Exam: REGULAR RHYTHM, +S1, +S2 - GI/Abdominal Exam GI & Abdominal Exam: Soft, Normal Bowel Sounds. absent: Tenderness - Neurological Exam Neurological Exam: Alert, Awake, Oriented x3 Neuro motor strength exam: Left Upper Extremity: 4, Right Upper Extremity: 5, Left Lower Extremity: 5, Right Lower Extremity: 5 - Psychiatric Exam Psychiatric exam: Normal Affect - Skin Skin Exam: Normal Color Assessment and Plan - Assessment and Plan (Free Text) Assessment: 42-year-old man with no significant past medical history came to the ER on 08/08/18 after he developed left facial droop and hand weakness that was noted at around 3 AM when he woke up that day. Acute Right MCA Stroke - Imaging: * ECHO w/ Bubble (08/10/18): no PFO No further cardiac work up planned at this time Case discussed with Dr. Raymond Morris PGY-2 <Jerome Andrade - Last Filed: 08/12/18 21:36> Objective - Vital Signs/Intake and Output Vital Signs (last 24 hours): Temp Pulse Resp BP Pulse Ox 98.4 F 58 L 11 L 102/72 99 08/12/18 20:00 08/12/18 21:20 08/12/18 21:20 08/12/18 21:20 08/12/18 21:20 Intake and Output: 08/12/18 08/13/18 18:59 06:59 Intake Total 1190 Output Total 1150 400 Balance 40 -400 - Medications Medications: Current Medications Acetaminophen (Tylenol 325mg Tab) 650 mg PO Q6 PRN PRN Reason: Pain, moderate (4-7) Last Admin: 08/12/18 15:17 Dose: 650 mg Aspirin (Aspirin) 325 mg PO Q24H AMOS Last Admin: 08/12/18 17:59 Dose: 325 mg Clopidogrel Bisulfate (Plavix) 75 mg PO Q24H AMOS Last Admin: 08/12/18 17:59 Dose: 75 mg Famotidine (Pepcid) 20 mg PO Q24H AMOS Last Admin: 08/12/18 17:59 Dose: 20 mg Lorazepam (Ativan) 0.5 mg IVP ONCE PRN PRN Reason: Anxiety Last Admin: 08/12/18 10:00 Dose: 0.5 mg Rosuvastatin Calcium (Crestor) 10 mg PO HS AMOS Last Admin: 08/11/18 22:31 Dose: 10 mg - Labs Labs: 08/12/18 05:47 08/12/18 05:47 PT 11.8 SECONDS (9.7-12.2) 08/08/18 04:29 INR 1.1 08/08/18 04:29 APTT 37 SECONDS (21-34) H 08/08/18 04:29
--- NOTE | 2018-08-12 10:47 | CP.CCUPN ---
<Sukhdeep Puentes - Last Filed: 08/12/18 12:34> CCU Subjective - Physician Review Subjective (Free Text): PGY-[address] ICU progress note for Dr Tesfaye Patient is seen and examined at bedside. No acute events overnight. Patient has no current complaint. Patient is eating breakfast, states he might be nauseous by the contrast. Denies headaches, dizziness, weakness, chest pain, sob, n/v/d/c or urinary complaints. Critical Care Time Spent (in minutes): 35 CCU Objective - Vital Signs / Intake & Output Intake and Output (Last 8hrs): Intake & Output 08/11/18 08/12/18 08/12/18 22:59 06:59 14:59 Intake Total 640 100 Output Total 600 900 Balance 40 -800 Weight 196 lb 11.2 oz Intake: Oral 640 100 Output: Urine 600 900 Urine, Voided 600 900 Other: # Bowel Movements 1 - Physical Exam Head: Positive for: Atraumatic, Normocephalic Pupils: Positive for: PERRL Extroacular Muscles: Positive for: EOMI Conjunctiva: Positive for: Normal Mouth: Positive for: Moist Mucous Membranes Neck: Positive for: Normal Range of Motion Respiratory/Chest: Positive for: Good Air Exchange. Negative for: Respiratory Distress, Wheezes Cardiovascular: Positive for: Regular Rate and Rhythm Abdomen: Positive for: Tenderness, Distention, Normal Bowel Sounds Upper Extremity: Positive for: Normal Inspection Lower Extremity: Positive for: Normal Inspection Neurological: Positive for: GCS=15, CN II-XII Intact, Speech Normal Skin: Positive for: Warm, Dry, Rashes, Normal Color Psychiatric: Positive for: Alert, Oriented x 3, Normal Insight, Normal Concentration - Medications Active Medications: Active Medications Generic Name Dose Route Start Last Admin Trade Name Freq PRN Reason Stop Dose Admin Acetaminophen 650 mg 08/08/18 10:24 08/11/18 09:05 Tylenol 325mg Tab PO 650 mg Q6 PRN Administration Pain, moderate (4-7) Aspirin 325 mg 08/11/18 18:30 08/11/18 18:45 Aspirin PO 325 mg Q24H AMOS Administration Clopidogrel Bisulfate 75 mg 08/11/18 18:15 08/11/18 18:45 Plavix PO 75 mg Q24H AMOS Administration Famotidine 20 mg 08/11/18 18:30 08/11/18 18:46 Pepcid PO 20 mg Q24H AMOS Administration Lorazepam 0.5 mg 08/12/18 09:39 08/12/18 10:00 Ativan IVP 0.5 mg ONCE PRN Administration Anxiety Rosuvastatin Calcium 10 mg 08/08/18 22:00 08/11/18 22:31 Crestor PO 10 mg HS AMOS Administration - Patient Studies Lab Studies: Lab Studies 08/12/18 08/12/18 08/11/18 Range/Units 05:47 05:47 12:50 WBC 5.7 (4.8-10.8) K/uL RBC 5.23 (4.40-5.90) Mil/uL Hgb 15.6 (12.0-18.0) g/dL Hct 46.0 (35.0-51.0) % MCV 88.0 (80.0-94.0) fL MCH 29.8 (27.0-31.0) pg MCHC 33.9 (33.0-37.0) g/dL RDW 13.2 (11.5-14.5) % Plt Count 197 (130-400) K/uL MPV 9.2 (7.2-11.7) fL Neut % (Auto) 65.5 (50.0-75.0) % Lymph % (Auto) 22.9 (20.0-40.0) % [place] % (Auto) 6.8 (0.0-10.0) % Eos % (Auto) 3.7 (0.0-4.0) % Baso % (Auto) 1.1 (0.0-2.0) % Neut # (Auto) 3.8 (1.8-7.0) K/uL Lymph # (Auto) 1.3 (1.0-4.3) K/uL [place] # (Auto) 0.4 (0.0-0.8) K/uL Eos # (Auto) 0.2 (0.0-0.7) K/uL Baso # (Auto) 0.1 (0.0-0.2) K/uL Sodium 135 (132-148) mmol/L Potassium 3.9 (3.6-5.2) mmol/L Chloride 102 (98-107) mmol/L Carbon Dioxide 26 (22-30) mmol/L Anion Gap 11 (10-20) BUN 12 (9-20) mg/dL Creatinine 1.1 (0.8-1.5) mg/dL Est GFR ( Amer) > 60 Est GFR (Non-Af Amer) > 60 POC Glucose (mg/dL) 72 (65-110) mg/dL Random Glucose 96 (75-110) mg/dL Calcium 8.7 (8.6-10.4) mg/dl Phosphorus 4.0 (2.5-4.5) mg/dL Magnesium 1.9 (1.6-2.3) mg/dL Total Bilirubin 1.0 (0.2-1.3) mg/dL AST 23 (17-59) U/L ALT 25 (21-72) U/L Alkaline Phosphatase 43 (38-126) U/L Total Protein 6.8 (6.3-8.3) g/dL Albumin 4.1 (3.5-5.0) g/dL Globulin 2.8 (2.2-3.9) gm/dL Albumin/Globulin Ratio 1.5 (1.0-2.1) Laboratory Results - last 24 hr 08/11/18 08/12/18 08/12/18 12:50 05:47 05:47 WBC 5.7 RBC 5.23 Hgb 15.6 Hct 46.0 MCV 88.0 MCH 29.8 MCHC 33.9 RDW 13.2 Plt Count 197 MPV 9.2 Neut % (Auto) 65.5 Lymph % (Auto) 22.9 [place] % (Auto) 6.8 Eos % (Auto) 3.7 Baso % (Auto) 1.1 Neut # (Auto) 3.8 Lymph # (Auto) 1.3 [place] # (Auto) 0.4 Eos # (Auto) 0.2 Baso # (Auto) 0.1 Sodium 135 Potassium 3.9 Chloride 102 Carbon Dioxide 26 Anion Gap 11 BUN 12 Creatinine 1.1 Est GFR ( Amer) > 60 Est GFR (Non-Af Amer) > 60 POC Glucose (mg/dL) 72 Random Glucose 96 Calcium 8.7 Phosphorus 4.0 Magnesium 1.9 Total Bilirubin 1.0 AST 23 ALT 25 Alkaline Phosphatase 43 Total Protein 6.8 Albumin 4.1 Globulin 2.8 Albumin/Globulin Ratio 1.5 Radiology Impressions: Radiology Impressions Head CT 08/10/18 23:00 IMPRESSION: 1. Interval change in small ischemic infarct at the right frontotemporal distribution surrounding the sylvian fissure with limited local mass effect again evident. No new edema pattern throughout the brain. No evidence of hemorrhagic conversion at this time. 2. Trace right frontal subarachnoid hemorrhage resolving with no new hemorrhage pattern appreciated or increased within the affected sulcus previously shown. Continued clinical and CT monitoring are advised. Fingerstick Blood Sugar Results: 86 Review of Systems - Review of Systems All systems: reviewed and no additional remarkable complaints except Review of Systems: as stated in subjective Critical Care Progress Note - Nutrition Nutrition: Nutrition Category Date Time Status Heart Healthy Diet [DIET] Diets 08/08/18 Breakfast Active NPO Diet [DIET] Diets 08/13/18 Breakfast Active Assessment/Plan - Assessment and Plan (Free Text) Plan: Patient is a 42 y/o M with no significant PMHx who was admitted for CVA. Pt was transferred to ICU after complaining of worsening headache, and repeat head CT showed right frontal lobe subarachnoid hemorrhage. Pt also has a linear intraluminal filling defect at the origin of right ICA concerning for focal dissection on head/neck CTA. awaiting MRI w/ contrast and MRA neck w/o contrast. Dr Singh on case, planning angiogram of neck on 08/12/18. Neuro head CT 08/10 @ 11 pm - trace right frontal subarachnoid hemorrhage resolving with no new hemorrhage head CT 08/10 - Curvilinear hyperdensity noted within the R frontal lobe consistent with subarachnoid hemorrhage. Interval development of patchy hypodensity involving the R frontal lobe consistent with ischemic infarction. Head/Neck CTA 08/10 - linear intraluminal filling defect at the origin of R ICA extending to the posterior wall concerning for focal dissection Brain MRI 08/08 - acute R MCA territory infarction involing the parietal lobe Vascular surgery consulted - no current interventions planned MRI w contrast and MRA neck without contrast - today, Ativan 0.5 mg x 1 dose for anxiety Angiogram neck 08/13/18 planned, to be performed by Dr Singh NPO after midnight Continue ASA and plavix as per Dr Singh Continue Crestor 10 mg Tylenol prn for headaches CV Echo with bubble study 08/08 - normal; no bubbles crossing over Crestor 10 mg lipid panel - TGs 87, Cholesterol 203, LDL 110, HDL 59 Respiratory on RA with SpO2 98% no active issues GI - HHD Prophylaxis DVT - SCDs; anticoags contraindicated GI - HHD Plan discussed with Dr Brien Puentes, PGY-1 - Date & Time Date: 08/12/18 Time: 09:00 <Cayden Tesfaye S - Last Filed: 08/12/18 15:36> CCU Objective - Vital Signs / Intake & Output Vital Signs (Last 4 hours): Vital Signs Pulse Resp BP Pulse Ox 08/12/18 15:00 65 22 104/64 96 08/12/18 14:19 74 8 L 109/66 08/12/18 14:17 70 13 130/107 H 08/12/18 14:16 74 20 08/12/18 12:02 80 20 107/57 L 97 08/12/18 12:00 68 19 96 08/12/18 11:50 75 15 106/57 L 96 Intake and Output (Last 8hrs): Intake & Output 08/12/18 08/12/18 08/12/18 06:59 14:59 22:59 Intake Total 100 390 Output Total 900 Balance -800 390 Weight 196 lb 11.2 oz Intake: Oral 100 390 Output: Urine 900 Urine, Voided 900 - Medications Active Medications: Active Medications Generic Name Dose Route Start Last Admin Trade Name Freq PRN Reason Stop Dose Admin Acetaminophen 650 mg 08/08/18 10:24 08/12/18 15:17 Tylenol 325mg Tab PO 650 mg Q6 PRN Administration Pain, moderate (4-7) Aspirin 325 mg 08/11/18 18:30 08/11/18 18:45 Aspirin PO 325 mg Q24H AMOS Administration Clopidogrel Bisulfate 75 mg 08/11/18 18:15 08/11/18 18:45 Plavix PO 75 mg Q24H AMOS Administration Famotidine 20 mg 08/11/18 18:30 08/11/18 18:46 Pepcid PO 20 mg Q24H AMOS Administration Lorazepam 0.5 mg 08/12/18 09:39 08/12/18 10:00 Ativan IVP 0.5 mg ONCE PRN Administration Anxiety Rosuvastatin Calcium 10 mg 08/08/18 22:00 08/11/18 22:31 Crestor PO 10 mg HS AMOS Administration - Patient Studies Lab Studies: Microbiology Studies 08/11/18 06:05 MRSA Culture (Admit) - Final Naris MRSA NOT DETECTED Lab Studies 08/12/18 08/12/18 08/10/18 Range/Units 05:47 05:47 11:29 WBC 5.7 (4.8-10.8) K/uL RBC 5.23 (4.40-5.90) Mil/uL Hgb 15.6 (12.0-18.0) g/dL Hct 46.0 (35.0-51.0) % MCV 88.0 (80.0-94.0) fL MCH 29.8 (27.0-31.0) pg MCHC 33.9 (33.0-37.0) g/dL RDW 13.2 (11.5-14.5) % Plt Count 197 (130-400) K/uL MPV 9.2 (7.2-11.7) fL Neut % (Auto) 65.5 (50.0-75.0) % Lymph % (Auto) 22.9 (20.0-40.0) % [place] % (Auto) 6.8 (0.0-10.0) % Eos % (Auto) 3.7 (0.0-4.0) % Baso % (Auto) 1.1 (0.0-2.0) % Neut # (Auto) 3.8 (1.8-7.0) K/uL Lymph # (Auto) 1.3 (1.0-4.3) K/uL [place] # (Auto) 0.4 (0.0-0.8) K/uL Eos # (Auto) 0.2 (0.0-0.7) K/uL Baso # (Auto) 0.1 (0.0-0.2) K/uL Protein C Antigen 98 (70-140) % Protein S Antigen (70-140) % Sodium 135 (132-148) mmol/L Potassium 3.9 (3.6-5.2) mmol/L Chloride 102 (98-107) mmol/L Carbon Dioxide 26 (22-30) mmol/L Anion Gap 11 (10-20) BUN 12 (9-20) mg/dL Creatinine 1.1 (0.8-1.5) mg/dL Est GFR ( Amer) > 60 Est GFR (Non-Af Amer) > 60 Random Glucose 96 (75-110) mg/dL Calcium 8.7 (8.6-10.4) mg/dl Phosphorus 4.0 (2.5-4.5) mg/dL Magnesium 1.9 (1.6-2.3) mg/dL Total Bilirubin 1.0 (0.2-1.3) mg/dL AST 23 (17-59) U/L ALT 25 (21-72) U/L Alkaline Phosphatase 43 (38-126) U/L Total Protein 6.8 (6.3-8.3) g/dL Albumin 4.1 (3.5-5.0) g/dL Globulin 2.8 (2.2-3.9) gm/dL Albumin/Globulin Ratio 1.5 (1.0-2.1) 08/10/18 Range/Units 11:29 WBC (4.8-10.8) K/uL RBC (4.40-5.90) Mil/uL Hgb (12.0-18.0) g/dL Hct (35.0-51.0) % MCV (80.0-94.0) fL MCH (27.0-31.0) pg MCHC (33.0-37.0) g/dL RDW (11.5-14.5) % Plt Count (130-400) K/uL MPV (7.2-11.7) fL Neut % (Auto) (50.0-75.0) % Lymph % (Auto) (20.0-40.0) % [place] % (Auto) (0.0-10.0) % Eos % (Auto) (0.0-4.0) % Baso % (Auto) (0.0-2.0) % Neut # (Auto) (1.8-7.0) K/uL Lymph # (Auto) (1.0-4.3) K/uL [place] # (Auto) (0.0-0.8) K/uL Eos # (Auto) (0.0-0.7) K/uL Baso # (Auto) (0.0-0.2) K/uL Protein C Antigen (70-140) % Protein S Antigen 88 (70-140) % Sodium (132-148) mmol/L Potassium (3.6-5.2) mmol/L Chloride (98-107) mmol/L Carbon Dioxide (22-30) mmol/L Anion Gap (10-20) BUN (9-20) mg/dL Creatinine (0.8-1.5) mg/dL Est GFR ( Amer) Est GFR (Non-Af Amer) Random Glucose (75-110) mg/dL Calcium (8.6-10.4) mg/dl Phosphorus (2.5-4.5) mg/dL Magnesium (1.6-2.3) mg/dL Total Bilirubin (0.2-1.3) mg/dL AST (17-59) U/L ALT (21-72) U/L Alkaline Phosphatase (38-126) U/L Total Protein (6.3-8.3) g/dL Albumin (3.5-5.0) g/dL Globulin (2.2-3.9) gm/dL Albumin/Globulin Ratio (1.0-2.1) Laboratory Results - last 24 hr 08/10/18 08/10/18 08/12/18 11:29 11:29 05:47 WBC 5.7 RBC 5.23 Hgb 15.6 Hct 46.0 MCV 88.0 MCH 29.8 MCHC 33.9 RDW 13.2 Plt Count 197 MPV 9.2 Neut % (Auto) 65.5 Lymph % (Auto) 22.9 [place] % (Auto) 6.8 Eos % (Auto) 3.7 Baso % (Auto) 1.1 Neut # (Auto) 3.8 Lymph # (Auto) 1.3 [place] # (Auto) 0.4 Eos # (Auto) 0.2 Baso # (Auto) 0.1 Protein C Antigen 98 Protein S Antigen 88 Sodium Potassium Chloride Carbon Dioxide Anion Gap BUN Creatinine Est GFR ( Amer) Est GFR (Non-Af Amer) Random Glucose Calcium Phosphorus Magnesium Total Bilirubin AST ALT Alkaline Phosphatase Total Protein Albumin Globulin Albumin/Globulin Ratio 08/12/18 05:47 WBC RBC Hgb Hct MCV MCH MCHC RDW Plt Count MPV Neut % (Auto) Lymph % (Auto) [place] % (Auto) Eos % (Auto) Baso % (Auto) Neut # (Auto) Lymph # (Auto) [place] # (Auto) Eos # (Auto) Baso # (Auto) Protein C Antigen Protein S Antigen Sodium 135 Potassium 3.9 Chloride 102 Carbon Dioxide 26 Anion Gap 11 BUN 12 Creatinine 1.1 Est GFR ( Amer) > 60 Est GFR (Non-Af Amer) > 60 Random Glucose 96 Calcium 8.7 Phosphorus 4.0 Magnesium 1.9 Total Bilirubin 1.0 AST 23 ALT 25 Alkaline Phosphatase 43 Total Protein 6.8 Albumin 4.1 Globulin 2.8 Albumin/Globulin Ratio 1.5 Critical Care Progress Note - Nutrition Nutrition: Nutrition Category Date Time Status Heart Healthy Diet [DIET] Diets 08/08/18 Breakfast Active NPO Diet [DIET] Diets 08/13/18 Breakfast Active Attending/Attestation - Attestation I have personally seen and examined this patient.: Yes I have fully participated in the care of the patient.: Yes I have reviewed all pertinent clinical information: Yes Notes (Text): 08/12/18 15:35 Patient seen and examined in the intensive care unit. Case discussed with housestaff in the morning rounds. Patient is awake and responsive 4 brain MRI and neck MRA Seen by neurology Neuro interventional follow-up Continue anticoagulation as per neuro for now
--- NOTE | 2018-08-12 16:22 | MRI ---
Date of service: 08/12/2018 PROCEDURE: MR Angiography of the neck without contrast HISTORY: stroke COMPARISON: None available. TECHNIQUE: 3D [id number] angiography of the neck was performed. Rotating maximum intensity projection images of the cervical carotid and vertebral arteries were generated. The origins of the common carotid arteries were not visualized, which is a limitation inherent to the non-contrast time of flight technique. FINDINGS: RIGHT CAROTID ARTERIES: Common Carotid Artery: Normal. Carotid Bifurcation: Normal. Internal Carotid Artery:At the origin of the right internal carotid artery, a pattern suggesting a mild stenosis is identified anterior to diminishing signal posteriorly. This rapidly disappears into normal signal within the right ICA approximately 1 cm after the origin. Correlating with CT finding of 08/10/2018, there may be no true stenosis and only turbulent blood flow following this linear structure in the central lumen causing diminished signal rather than signal loss from plaque or chronic hematoma. A short dissection remains difficult to exclude, nevertheless, aneurysm antral consultation is advised. External Carotid Artery (proximal branches): Normal. LEFT CAROTID ARTERIES: Common Carotid Artery: Normal. Carotid Bifurcation: Normal. Internal Carotid Artery:Normal. External Carotid Artery (proximal branches): Normal. VERTEBRAL ARTERIES: Right Vertebral Artery: Normal. Left Vertebral Artery: Normal. OTHER FINDINGS: Motion artifacts distort arterial anatomy at the skull base. IMPRESSION: Signal changes are are abnormal at the origin of the right internal carotid artery in indicate probable turbulent blood flow simulating a stenosis though intrinsic stenosis is not excluded, at the same level of the suspected dissection in the CT angiogram 08/10/2018. A short dissection remains possible though stable in the interval. A mild stenosis of the origin of the right internal carotid artery is suggested based on NASCET criteria. Follow-up neuro interventional consultation advised. No significant stenosis bilateral common carotid arteries or left internal carotid artery. Bilateral vertebral arteries appear patent as well.
--- NOTE | 2018-08-12 16:29 | MRI ---
Date of service: 08/12/2018 PROCEDURE: MRI BRAIN WITH AND WITHOUT CONTRAST HISTORY: Stroke COMPARISON: Brain MRI without contrast 08/08/2018. TECHNIQUE: Multiplanar, multisequence MR images of the brain were obtained with and without intravenous contrast enhancement (Omniscan 18 cc). FINDINGS: In the interval, increased edema is appreciated with accompanying mass effect at the right frontotemporal region with with identical distribution of restricted diffusion in the increase territory. No interval suspicious signal abnormality above or below the tentorium. Signal abnormality is somewhat odd and appears primarily cortical with limited white-matter changes by MR though CT pattern does show prominent white matter edema within this distribution. Overall pattern suggests infarct in evolution at the perisylvian right frontal parietal distribution. There is no significant contrast enhancement following intravenous gadolinium administration. CRANIUM: Unremarkable. ORBITS: Grossly unremarkable. PARANASAL SINUSES/MASTOIDS: Clear VASCULAR SYSTEM: Skull base flow voids intact. OTHER FINDINGS: None . IMPRESSION: Infarct affecting the right frontotemporal perisylvian distribution is identified in evolution with increased territory affected in the interval though not dramatically worsened. Local mass effect is identified without midline shift. No abnormal intracranial enhancement identified at this time.
[2018-08-13 06:02] LABS: BASO # 0.1 K/uL (0.0-0.2); BASO % 1.2 % (0.0-2.0); EOS # 0.1 K/uL (0.0-0.7); EOS % 2.6 % (0.0-4.0); HEMOGLOBIN 16.2 g/dL (12.0-18.0); LYMPH # 1.1 K/uL (1.0-4.3); LYMPH % 23.6 % (20.0-40.0); MEAN CELL VOLUME 87.2 fL (80.0-94.0); MEAN CORPUSCULAR HEMOGLOBIN 29.5 pg (27.0-31.0); MEAN CORPUSCULAR HGB CONC 33.8 g/dL (33.0-37.0); MEAN PLATELET VOLUME 8.6 fL (7.2-11.7); MONO # 0.2 K/uL (0.0-0.8); MONO % 5.1 % (0.0-10.0); NEUT # 3.2 K/uL (1.8-7.0); NEUT % 67.5 % (50.0-75.0); NRBC % 0.1 % (0.0-2.0); RBC 5.48 Mil/uL (4.40-5.90); WHITE BLOOD COUNT 4.7 K/uL (4.8-10.8)
[2018-08-13 06:22] LABS: ALB/GLOB RATIO 1.5 (1.0-2.1); ALBUMIN 4.2 g/dL (3.5-5.0); ALT/SGPT 25 U/L (21-72); AST/SGOT 19 U/L (17-59); BLOOD UREA NITROGEN 13 mg/dL (9-20); CALCIUM 9.2 mg/dl (8.6-10.4); GFR NON-AFRICAN AMERICAN > 60
[2018-08-13 06:24] LABS: PROTHROMBIN TIME 11.4 SECONDS (9.7-12.2)
[2018-08-13] MEDS ORDERED: Iodixanol 320 MG/ML 200 ML BOTTLE IV ONE (10:13)
[2018-08-13] MEDS ORDERED: Lidocaine 1% 20 MG/2 ML PF AMP ONE (10:16)
--- NOTE | 2018-08-13 10:22 | PCM.IRPREO ---
Pre Procedure Note - History Proposed Procedure: Cerebral Angiogram- Endovascular treatment of FAN stenosis with embolic protection device and possible balloon angioplasty Pre-Op Diagnosis: Intracranial Rt Carotid Stenosis - Previous Medical/Surgical History Pain: 0. No Pain Previous Surgical History: left leg surgery - Pre Procedure Were any radiologic studies performed in the last 12 months: Yes List of radiologic studies performed: On admission to ED CT/CTA/MRI Was medical management performed in the past 24 months: Not Applicable Clinical indication for the procedure: Internal Artery stenosis right Have risks and benefits been explained to the patient: Yes (Planned procedure, benefits, and risks including but not limited to groin infection, arterial occlusion, injury, renal impairment, CVA/Brain hemorrhage resulting in irreversible neurological deficits and even were explained to in detail. He agrees to proceed and informed consent was obtained.) Risks and benefits been explained to the patient: See above Have alternatives to surgery explained to the patient as applicable: Yes - Allergies Allergies: Allergies No Known Allergies Allergy (Verified 08/08/18 04:23) - Current Medications Current Medications: Plavix 75mg PO daily Aspirin 325mg PO daily - Physical Exam Vital Signs: Vital Signs 08/13/18 08/13/18 08/13/18 03:00 04:00 05:00 Temperature 98.1 F Pulse Rate 58 L 55 L 56 L Respiratory 20 11 L 15 Rate Blood Pressure 112/61 117/69 114/56 L O2 Sat by Pulse 99 97 98 Oximetry 08/13/18 08/13/18 08/13/18 06:14 07:11 07:30 Temperature 97.8 F Pulse Rate 58 L 48 L 58 L Respiratory 20 14 Rate Blood Pressure 92/54 L 127/61 O2 Sat by Pulse 98 98 Oximetry Mental Status: Alert & Oriented x3 Neuro: WNL Heart: WNL Lungs: WNL - Specialist Directed Exam Integument: WNL ENT: WNL - Impression Impression: 42 year old male with no significant risk factors presents to the ED with left upper extremity weakness, left facial droop and dysarthria that have resolved. Right ICA dissection with ischemic stroke. - Date & Time Date: 08/13/18 Time: 10:20
[2018-08-13] MEDS ORDERED: ePHEDrine 50 mg/ml Inj ONE (11:47)
[2018-08-13] MEDS ORDERED: Iodixanol 320 MG/ML 100 ML BOTTLE IV ONE (11:51)
--- NOTE | 2018-08-13 12:48 | PCM.SURG1 ---
Surgeon's Initial Post Op Note - Surgeon's Notes Surgeon: Nakul Singh Conference Coordinator: none Type of Anesthesia: MAC Anesthesia Administered By: Anesthia Pre-Operative Diagnosis: Right ICA dissection symptomatic Operative Findings: 80 percent stenosis of right internal carotid secondary to focal dissection Post-Operative Diagnosis: status post FAN stent placement 8x 30 mm prescise and post inflation with a 7x 30 avaiator balloon Operation Performed: Right Internal Carotid Stent Placement with Embolic protection Specimen/Specimens Removed: none Estimated Blood Loss: EBL {In ML}: 50 Drains Used: No Drains Post-Op Condition: Good Date of Surgery/Procedure: 08/13/18 Time of Surgery/Procedure: 11:30
[2018-08-13] MEDS: Sodium Chloride 0.9% 1,000 ML IV SCH ×2 (13:00→21:23)
[2018-08-13] MEDS ORDERED: niCARdipine IV 25 MG in Sodium Chloride 0.9% 240 ML IV SCH (13:00)
[2018-08-13] MEDS: niCARdipine IV 25 MG in Sodium Chloride 0.9% 240 ML IV SCH ×2 (13:57→21:17)
[2018-08-13] MEDS: Albumin Human 25% (12.5 gm/50 ml) IV SCH ×5 (14:40→18:27)
--- NOTE | 2018-08-13 14:42 | CP.CCUPN ---
<Humberto Encarnacion - Last Filed: 08/13/18 16:27> CCU Objective - Vital Signs / Intake & Output Vital Signs (Last 4 hours): Vital Signs Pulse Resp BP Pulse Ox 08/13/18 15:02 84/41 L 08/13/18 15:01 45 L 16 98 08/13/18 15:00 47 L 14 99 08/13/18 14:47 47 L 13 87/42 L 98 08/13/18 14:32 46 L 14 89/46 L 97 08/13/18 14:17 47 L 8 L 87/48 L 99 08/13/18 14:02 48 L 14 88/44 L 97 08/13/18 14:00 47 L 15 97 08/13/18 13:47 54 L 14 90/48 L 98 08/13/18 13:32 48 L 15 88/48 L 98 08/13/18 13:17 51 L 15 92/48 L 98 08/13/18 13:02 50 L 15 89/46 L 97 08/13/18 13:00 50 L 13 96 08/13/18 12:47 55 L 14 89/49 L 97 08/13/18 12:32 52 L 14 92/46 L 95 Intake and Output (Last 8hrs): Intake & Output 08/13/18 08/13/18 08/13/18 06:59 14:59 22:59 Intake Total 200 250 Output Total 400 0 Balance -200 250 Weight 196 lb 12.8 oz Intake: Oral 200 250 Output: Urine 400 0 Urine, Voided 400 0 Other: # Bowel Movements 1 - Medications Active Medications: Active Medications Generic Name Dose Route Start Last Admin Trade Name Freq PRN Reason Stop Dose Admin Acetaminophen 650 mg 08/08/18 10:24 08/12/18 15:17 Tylenol 325mg Tab PO 650 mg Q6 PRN Administration Pain, moderate (4-7) Albumin Human 12.5 gm 08/13/18 14:45 08/13/18 16:18 Albumin Human 25% (12.5 Gm/50 Ml) IV 08/13/18 18:46 12.5 gm Q1H AMOS Administration Aspirin 325 mg 08/11/18 18:30 08/12/18 17:59 Aspirin PO 325 mg Q24H AMOS Administration Clopidogrel Bisulfate 75 mg 08/11/18 18:15 08/12/18 17:59 Plavix PO 75 mg Q24H AMOS Administration Famotidine 20 mg 08/11/18 18:30 08/12/18 17:59 Pepcid PO 20 mg Q24H AMOS Administration Heparin Sodium (Porcine) 4,000 1,004 mls @ 0 mls/hr 08/13/18 09:00 units/ Sodium Chloride IVP 08/18/18 09:01 ONCE AMOS UD Sodium Chloride 1,000 mls @ 125 mls/hr 08/13/18 12:30 08/13/18 13:00 Sodium Chloride 0.9% IV 08/14/18 08:00 125 mls/hr .Q8H AMOS Administration Nicardipine HCl 25 mg/ Sodium 250 mls @ 50 mls/hr 08/13/18 14:00 08/13/18 13:57 Chloride IV Not Given .Q5H AMOS Protocol 5 MG/HR Lorazepam 0.5 mg 08/12/18 09:39 08/12/18 10:00 Ativan IVP 0.5 mg ONCE PRN Administration Anxiety Rosuvastatin Calcium 10 mg 08/08/18 22:00 08/12/18 22:13 Crestor PO 10 mg HS AMOS Administration - Patient Studies Lab Studies: Microbiology Studies 08/11/18 06:05 MRSA Culture (Admit) - Final Naris MRSA NOT DETECTED Lab Studies 08/13/18 08/13/18 08/13/18 Range/Units 16:01 05:35 05:35 WBC 4.7 L 4.7 L (4.8-10.8) K/uL RBC 4.81 5.48 (4.40-5.90) Mil/uL Hgb 14.2 D 16.2 (12.0-18.0) g/dL Hct 41.7 47.8 (35.0-51.0) % MCV 86.8 87.2 (80.0-94.0) fL MCH 29.5 29.5 (27.0-31.0) pg MCHC 34.0 33.8 (33.0-37.0) g/dL RDW 12.8 13.0 (11.5-14.5) % Plt Count 174 183 (130-400) K/uL MPV 8.7 8.6 (7.2-11.7) fL Neut % (Auto) 70.9 67.5 (50.0-75.0) % Lymph % (Auto) 21.6 23.6 (20.0-40.0) % [place] % (Auto) 5.1 5.1 (0.0-10.0) % Eos % (Auto) 1.3 2.6 (0.0-4.0) % Baso % (Auto) 1.1 1.2 (0.0-2.0) % Neut # (Auto) 3.3 3.2 (1.8-7.0) K/uL Lymph # (Auto) 1.0 1.1 (1.0-4.3) K/uL [place] # (Auto) 0.2 0.2 (0.0-0.8) K/uL Eos # (Auto) 0.1 0.1 (0.0-0.7) K/uL Baso # (Auto) 0.0 0.1 (0.0-0.2) K/uL PT (9.7-12.2) SECONDS INR APTT (21-34) SECONDS Plt P2Y12 React Units (194-418) PRU Antithrombin III Ag (80-120) % Sodium 135 (132-148) mmol/L Potassium 4.3 (3.6-5.2) mmol/L Chloride 102 (98-107) mmol/L Carbon Dioxide 25 (22-30) mmol/L Anion Gap 13 (10-20) BUN 13 (9-20) mg/dL Creatinine 1.1 (0.8-1.5) mg/dL Est GFR ( Amer) > 60 Est GFR (Non-Af Amer) > 60 Random Glucose 106 (75-110) mg/dL Calcium 9.2 (8.6-10.4) mg/dl Phosphorus 3.9 (2.5-4.5) mg/dL Magnesium 1.9 (1.6-2.3) mg/dL Total Bilirubin 0.9 (0.2-1.3) mg/dL AST 19 (17-59) U/L ALT 25 (21-72) U/L Alkaline Phosphatase 54 (38-126) U/L Total Protein 7.0 (6.3-8.3) g/dL Albumin 4.2 (3.5-5.0) g/dL Globulin 2.8 (2.2-3.9) gm/dL Albumin/Globulin Ratio 1.5 (1.0-2.1) Prothrombin Mut Interp Prothrombin Gene Mutate Prothromb Gene Review 08/13/18 08/10/18 08/10/18 Range/Units 05:35 14:50 11:29 WBC (4.8-10.8) K/uL RBC (4.40-5.90) Mil/uL Hgb (12.0-18.0) g/dL Hct (35.0-51.0) % MCV (80.0-94.0) fL MCH (27.0-31.0) pg MCHC (33.0-37.0) g/dL RDW (11.5-14.5) % Plt Count (130-400) K/uL MPV (7.2-11.7) fL Neut % (Auto) (50.0-75.0) % Lymph % (Auto) (20.0-40.0) % [place] % (Auto) (0.0-10.0) % Eos % (Auto) (0.0-4.0) % Baso % (Auto) (0.0-2.0) % Neut # (Auto) (1.8-7.0) K/uL Lymph # (Auto) (1.0-4.3) K/uL [place] # (Auto) (0.0-0.8) K/uL Eos # (Auto) (0.0-0.7) K/uL Baso # (Auto) (0.0-0.2) K/uL PT 11.4 (9.7-12.2) SECONDS INR 1.0 APTT 34 (21-34) SECONDS Plt P2Y12 React Units 4 L (194-418) PRU Antithrombin III Ag 81 (80-120) % Sodium (132-148) mmol/L Potassium (3.6-5.2) mmol/L Chloride (98-107) mmol/L Carbon Dioxide (22-30) mmol/L Anion Gap (10-20) BUN (9-20) mg/dL Creatinine (0.8-1.5) mg/dL Est GFR ( Amer) Est GFR (Non-Af Amer) Random Glucose (75-110) mg/dL Calcium (8.6-10.4) mg/dl Phosphorus (2.5-4.5) mg/dL Magnesium (1.6-2.3) mg/dL Total Bilirubin (0.2-1.3) mg/dL AST (17-59) U/L ALT (21-72) U/L Alkaline Phosphatase (38-126) U/L Total Protein (6.3-8.3) g/dL Albumin (3.5-5.0) g/dL Globulin (2.2-3.9) gm/dL Albumin/Globulin Ratio (1.0-2.1) Prothrombin Mut Interp see note Prothrombin Gene Mutate see note Prothromb Gene Review see note Laboratory Results - last 24 hr 08/10/18 08/10/18 08/13/18 11:29 14:50 05:35 WBC RBC Hgb Hct MCV MCH MCHC RDW Plt Count MPV Neut % (Auto) Lymph % (Auto) [place] % (Auto) Eos % (Auto) Baso % (Auto) Neut # (Auto) Lymph # (Auto) [place] # (Auto) Eos # (Auto) Baso # (Auto) PT 11.4 INR 1.0 APTT 34 Plt P2Y12 React Units 4 L Antithrombin III Ag 81 Sodium Potassium Chloride Carbon Dioxide Anion Gap BUN Creatinine Est GFR ( Amer) Est GFR (Non-Af Amer) Random Glucose Calcium Phosphorus Magnesium Total Bilirubin AST ALT Alkaline Phosphatase Total Protein Albumin Globulin Albumin/Globulin Ratio Prothrombin Mut Interp see note Prothrombin Gene Mutate see note Prothromb Gene Review see note 08/13/18 08/13/18 08/13/18 05:35 05:35 16:01 WBC 4.7 L 4.7 L RBC 5.48 4.81 Hgb 16.2 14.2 D Hct 47.8 41.7 MCV 87.2 86.8 MCH 29.5 29.5 MCHC 33.8 34.0 RDW 13.0 12.8 Plt Count 183 174 MPV 8.6 8.7 Neut % (Auto) 67.5 70.9 Lymph % (Auto) 23.6 21.6 [place] % (Auto) 5.1 5.1 Eos % (Auto) 2.6 1.3 Baso % (Auto) 1.2 1.1 Neut # (Auto) 3.2 3.3 Lymph # (Auto) 1.1 1.0 [place] # (Auto) 0.2 0.2 Eos # (Auto) 0.1 0.1 Baso # (Auto) 0.1 0.0 PT INR APTT Plt P2Y12 React Units Antithrombin III Ag Sodium 135 Potassium 4.3 Chloride 102 Carbon Dioxide 25 Anion Gap 13 BUN 13 Creatinine 1.1 Est GFR ( Amer) > 60 Est GFR (Non-Af Amer) > 60 Random Glucose 106 Calcium 9.2 Phosphorus 3.9 Magnesium 1.9 Total Bilirubin 0.9 AST 19 ALT 25 Alkaline Phosphatase 54 Total Protein 7.0 Albumin 4.2 Globulin 2.8 Albumin/Globulin Ratio 1.5 Prothrombin Mut Interp Prothrombin Gene Mutate Prothromb Gene Review Radiology Impressions: Radiology Impressions Brain MRI 08/12/18 08:00 IMPRESSION: Infarct affecting the right frontotemporal perisylvian distribution is identified in evolution with increased territory affected in the interval though not dramatically worsened. Local mass effect is identified without midline shift. No abnormal intracranial enhancement identified at this time. Neck MRA 08/12/18 17:27 IMPRESSION: Signal changes are are abnormal at the origin of the right internal carotid artery in indicate probable turbulent blood flow simulating a stenosis though intrinsic stenosis is not excluded, at the same level of the suspected dissection in the CT angiogram 08/10/2018. A short dissection remains possible though stable in the interval. A mild stenosis of the origin of the right internal carotid artery is suggested based on NASCET criteria. Follow-up neuro interventional consultation advised. No significant stenosis bilateral common carotid arteries or left internal carotid artery. Bilateral vertebral arteries appear patent as well. Critical Care Progress Note - Nutrition Nutrition: Nutrition Category Date Time Status Heart Healthy Diet [DIET] Diets 08/13/18 Lunch Active Attending/Attestation - Attestation I have personally seen and examined this patient.: Yes I have fully participated in the care of the patient.: Yes I have reviewed all pertinent clinical information: Yes Notes (Text): I have seen and examined the patient. Medical records, lab studies, and imaging were reviewed by me and a management plan was formulated on multidisciplinary rounds with resident Dr. Puentes. I agree with their documented assessment and plan. Patient underwent stenting of right carotid artery, will monitor for neuro changes, maintain sBP<140. Critical Care Time 35 minutes. Multi-disciplinary rounds were performed with house staff, nursing, speech therapy, respiratory therapy, pharmacy and nutrition with integrated input from the primary team/attending and other consulting services. The documented time is cumulative and includes review of patient data/exams/labs/chart review and examination of the patient on rounds and throughout the day; time is exclusive of any procedures or teaching time. 08/13/18 16:55 <Sukhdeep Puentes - Last Filed: 08/13/18 21:09> CCU Subjective - Physician Review Subjective (Free Text): PGY-1 ICU progress note for Dr Encarnacion Patient is seen and examined at bedside. Patient is s/p angiogram with stent placement. Patient is feeling well, had mild pain on incision site (right inguinal area) for angiogram, relieved with tylenol. denies pain at this time. Family is at bedside. Patient is eating well, no bowel movements today, urinating regularly. 08/13/18 21:05 Critical Care Time Spent (in minutes): 35 CCU Objective - Vital Signs / Intake & Output Vital Signs (Last 4 hours): Vital Signs Pulse Resp BP Pulse Ox 08/13/18 13:32 48 L 15 88/48 L 98 08/13/18 13:17 51 L 15 92/48 L 98 08/13/18 13:02 50 L 15 89/46 L 97 08/13/18 13:00 50 L 13 96 08/13/18 12:47 55 L 14 89/49 L 97 08/13/18 12:32 52 L 14 92/46 L 95 08/13/18 12:17 56 L 9 L 97/54 L 08/13/18 12:15 60 12 Intake and Output (Last 8hrs): Intake & Output 08/12/18 08/13/18 08/13/18 22:59 06:59 14:59 Intake Total 900 200 250 Output Total 1550 400 0 Balance -650 -200 250 Weight 196 lb 12.8 oz Intake: Oral 900 200 250 Output: Urine 1550 400 0 Urine, Voided 1550 400 0 Other: # Voids Urine, Voided 1 # Bowel Movements 0 1 - Physical Exam Head: Positive for: Atraumatic, Normocephalic Pupils: Positive for: PERRL Extroacular Muscles: Positive for: EOMI Conjunctiva: Positive for: Normal Mouth: Positive for: Moist Mucous Membranes Neck: Positive for: Normal Range of Motion Respiratory/Chest: Positive for: Good Air Exchange. Negative for: Respiratory Distress, Wheezes Cardiovascular: Positive for: Regular Rate and Rhythm Abdomen: Positive for: Tenderness, Distention, Normal Bowel Sounds Upper Extremity: Positive for: Normal Inspection Lower Extremity: Positive for: Normal Inspection, Other (right inguinal dressing, c/d/i ) Neurological: Positive for: GCS=15, CN II-XII Intact, Speech Normal Skin: Positive for: Warm, Dry, Rashes, Normal Color Psychiatric: Positive for: Alert, Oriented x 3, Normal Insight, Normal Concentration - Medications Active Medications: Active Medications Generic Name Dose Route Start Last Admin Trade Name Freq PRN Reason Stop Dose Admin Acetaminophen 650 mg 08/08/18 10:24 08/12/18 15:17 Tylenol 325mg Tab PO 650 mg Q6 PRN Administration Pain, moderate (4-7) Albumin Human 12.5 gm 08/13/18 14:45 08/13/18 14:40 Albumin Human 25% (12.5 Gm/50 Ml) IV 08/13/18 18:46 12.5 gm Q1H AMOS Administration Aspirin 325 mg 08/11/18 18:30 08/12/18 17:59 Aspirin PO 325 mg Q24H AMOS Administration Clopidogrel Bisulfate 75 mg 08/11/18 18:15 08/12/18 17:59 Plavix PO 75 mg Q24H AMOS Administration Famotidine 20 mg 08/11/18 18:30 08/12/18 17:59 Pepcid PO 20 mg Q24H AMOS Administration Heparin Sodium (Porcine) 4,000 1,004 mls @ 0 mls/hr 08/13/18 09:00 units/ Sodium Chloride IVP 08/18/18 09:01 ONCE AMOS UD Sodium Chloride 1,000 mls @ 125 mls/hr 08/13/18 12:30 08/13/18 13:00 Sodium Chloride 0.9% IV 08/14/18 08:00 125 mls/hr .Q8H AMOS Administration Nicardipine HCl 25 mg/ Sodium 250 mls @ 50 mls/hr 08/13/18 14:00 08/13/18 13:57 Chloride IV Not Given .Q5H AMOS Protocol 5 MG/HR Lorazepam 0.5 mg 08/12/18 09:39 08/12/18 10:00 Ativan IVP 0.5 mg ONCE PRN Administration Anxiety Rosuvastatin Calcium 10 mg 08/08/18 22:00 08/12/18 22:13 Crestor PO 10 mg HS AMOS Administration - Patient Studies Lab Studies: Microbiology Studies 08/11/18 06:05 MRSA Culture (Admit) - Final Naris MRSA NOT DETECTED Lab Studies 08/13/18 08/13/18 08/13/18 Range/Units 05:35 05:35 05:35 WBC 4.7 L (4.8-10.8) K/uL RBC 5.48 (4.40-5.90) Mil/uL Hgb 16.2 (12.0-18.0) g/dL Hct 47.8 (35.0-51.0) % MCV 87.2 (80.0-94.0) fL MCH 29.5 (27.0-31.0) pg MCHC 33.8 (33.0-37.0) g/dL RDW 13.0 (11.5-14.5) % Plt Count 183 (130-400) K/uL MPV 8.6 (7.2-11.7) fL Neut % (Auto) 67.5 (50.0-75.0) % Lymph % (Auto) 23.6 (20.0-40.0) % [place] % (Auto) 5.1 (0.0-10.0) % Eos % (Auto) 2.6 (0.0-4.0) % Baso % (Auto) 1.2 (0.0-2.0) % Neut # (Auto) 3.2 (1.8-7.0) K/uL Lymph # (Auto) 1.1 (1.0-4.3) K/uL [place] # (Auto) 0.2 (0.0-0.8) K/uL Eos # (Auto) 0.1 (0.0-0.7) K/uL Baso # (Auto) 0.1 (0.0-0.2) K/uL PT 11.4 (9.7-12.2) SECONDS INR 1.0 APTT 34 (21-34) SECONDS Plt P2Y12 React Units 4 L (194-418) PRU Protein C Antigen (70-140) % Antithrombin III Ag (80-120) % Sodium 135 (132-148) mmol/L Potassium 4.3 (3.6-5.2) mmol/L Chloride 102 (98-107) mmol/L Carbon Dioxide 25 (22-30) mmol/L Anion Gap 13 (10-20) BUN 13 (9-20) mg/dL Creatinine 1.1 (0.8-1.5) mg/dL Est GFR ( Amer) > 60 Est GFR (Non-Af Amer) > 60 Random Glucose 106 (75-110) mg/dL Calcium 9.2 (8.6-10.4) mg/dl Phosphorus 3.9 (2.5-4.5) mg/dL Magnesium 1.9 (1.6-2.3) mg/dL Total Bilirubin 0.9 (0.2-1.3) mg/dL AST 19 (17-59) U/L ALT 25 (21-72) U/L Alkaline Phosphatase 54 (38-126) U/L Total Protein 7.0 (6.3-8.3) g/dL Albumin 4.2 (3.5-5.0) g/dL Globulin 2.8 (2.2-3.9) gm/dL Albumin/Globulin Ratio 1.5 (1.0-2.1) Prothrombin Mut Interp Prothrombin Gene Mutate Prothromb Gene Review 08/10/18 08/10/18 08/10/18 Range/Units 14:50 11:29 11:29 WBC (4.8-10.8) K/uL RBC (4.40-5.90) Mil/uL Hgb (12.0-18.0) g/dL Hct (35.0-51.0) % MCV (80.0-94.0) fL MCH (27.0-31.0) pg MCHC (33.0-37.0) g/dL RDW (11.5-14.5) % Plt Count (130-400) K/uL MPV (7.2-11.7) fL Neut % (Auto) (50.0-75.0) % Lymph % (Auto) (20.0-40.0) % [place] % (Auto) (0.0-10.0) % Eos % (Auto) (0.0-4.0) % Baso % (Auto) (0.0-2.0) % Neut # (Auto) (1.8-7.0) K/uL Lymph # (Auto) (1.0-4.3) K/uL [place] # (Auto) (0.0-0.8) K/uL Eos # (Auto) (0.0-0.7) K/uL Baso # (Auto) (0.0-0.2) K/uL PT (9.7-12.2) SECONDS INR APTT (21-34) SECONDS Plt P2Y12 React Units (194-418) PRU Protein C Antigen 98 (70-140) % Antithrombin III Ag 81 (80-120) % Sodium (132-148) mmol/L Potassium (3.6-5.2) mmol/L Chloride (98-107) mmol/L Carbon Dioxide (22-30) mmol/L Anion Gap (10-20) BUN (9-20) mg/dL Creatinine (0.8-1.5) mg/dL Est GFR ( Amer) Est GFR (Non-Af Amer) Random Glucose (75-110) mg/dL Calcium (8.6-10.4) mg/dl Phosphorus (2.5-4.5) mg/dL Magnesium (1.6-2.3) mg/dL Total Bilirubin (0.2-1.3) mg/dL AST (17-59) U/L ALT (21-72) U/L Alkaline Phosphatase (38-126) U/L Total Protein (6.3-8.3) g/dL Albumin (3.5-5.0) g/dL Globulin (2.2-3.9) gm/dL Albumin/Globulin Ratio (1.0-2.1) Prothrombin Mut Interp see note Prothrombin Gene Mutate see note Prothromb Gene Review see note Laboratory Results - last 24 hr 08/10/18 08/10/18 08/10/18 11:29 11:29 14:50 WBC RBC Hgb Hct MCV MCH MCHC RDW Plt Count MPV Neut % (Auto) Lymph % (Auto) [place] % (Auto) Eos % (Auto) Baso % (Auto) Neut # (Auto) Lymph # (Auto) [place] # (Auto) Eos # (Auto) Baso # (Auto) PT INR APTT Plt P2Y12 React Units Protein C Antigen 98 Antithrombin III Ag 81 Sodium Potassium Chloride Carbon Dioxide Anion Gap BUN Creatinine Est GFR ( Amer) Est GFR (Non-Af Amer) Random Glucose Calcium Phosphorus Magnesium Total Bilirubin AST ALT Alkaline Phosphatase Total Protein Albumin Globulin Albumin/Globulin Ratio Prothrombin Mut Interp see note Prothrombin Gene Mutate see note Prothromb Gene Review see note 08/13/18 08/13/18 08/13/18 05:35 05:35 05:35 WBC 4.7 L RBC 5.48 Hgb 16.2 Hct 47.8 MCV 87.2 MCH 29.5 MCHC 33.8 RDW 13.0 Plt Count 183 MPV 8.6 Neut % (Auto) 67.5 Lymph % (Auto) 23.6 [place] % (Auto) 5.1 Eos % (Auto) 2.6 Baso % (Auto) 1.2 Neut # (Auto) 3.2 Lymph # (Auto) 1.1 [place] # (Auto) 0.2 Eos # (Auto) 0.1 Baso # (Auto) 0.1 PT 11.4 INR 1.0 APTT 34 Plt P2Y12 React Units 4 L Protein C Antigen Antithrombin III Ag Sodium 135 Potassium 4.3 Chloride 102 Carbon Dioxide 25 Anion Gap 13 BUN 13 Creatinine 1.1 Est GFR ( Amer) > 60 Est GFR (Non-Af Amer) > 60 Random Glucose 106 Calcium 9.2 Phosphorus 3.9 Magnesium 1.9 Total Bilirubin 0.9 AST 19 ALT 25 Alkaline Phosphatase 54 Total Protein 7.0 Albumin 4.2 Globulin 2.8 Albumin/Globulin Ratio 1.5 Prothrombin Mut Interp Prothrombin Gene Mutate Prothromb Gene Review Radiology Impressions: Radiology Impressions Brain MRI 08/12/18 08:00 IMPRESSION: Infarct affecting the right frontotemporal perisylvian distribution is identified in evolution with increased territory affected in the interval though not dramatically worsened. Local mass effect is identified without midline shift. No abnormal intracranial enhancement identified at this time. Neck MRA 08/12/18 17:27 IMPRESSION: Signal changes are are abnormal at the origin of the right internal carotid artery in indicate probable turbulent blood flow simulating a stenosis though intrinsic stenosis is not excluded, at the same level of the suspected dissection in the CT angiogram 08/10/2018. A short dissection remains possible though stable in the interval. A mild stenosis of the origin of the right internal carotid artery is suggested based on NASCET criteria. Follow-up neuro interventional consultation advised. No significant stenosis bilateral common carotid arteries or left internal carotid artery. Bilateral vertebral arteries appear patent as well. Fingerstick Blood Sugar Results: 86 Critical Care Progress Note - Nutrition Nutrition: Nutrition Category Date Time Status Heart Healthy Diet [DIET] Diets 08/13/18 Lunch Active Assessment/Plan - Assessment and Plan (Free Text) Plan: Patient is a 42 y/o M with no significant PMHx who was admitted for CVA. Pt was transferred to ICU after complaining of worsening headache, and repeat head CT showed right frontal lobe subarachnoid hemorrhage. Pt also has a linear intraluminal filling defect at the origin of right ICA concerning for focal dissection on head/neck CTA. s/p angiogram with FAN stent placement. Neuro Right ICA dissection with ischemic stroke Right Internal Carotid stent placement with embolic protection done by Dr Francisco CHAVIRA stent placement 8x30 mm prescise and post inflation with a 7x 30 aviator ballon patient in good condition post op Assess neurovasc and neuro status Q15 x 2 hours, Q30 x 3 hrs, Q1 for 16 hours resume diet Continue ASA and plavix Tylenol prn for headaches CV Monitor SBP maintain 100-140 Blood pressure decreased post op - Nicardipine drip Albumin 25% 12.5gm Q1H for 6 hours Crestor 10 mg Respiratory sat 98% post op no active issues GI - resume HHD Prophylaxis DVT - SCDs pepcid GI - HHD Plan discussed with Dr Shashank Puentes, PGY-1 - Date & Time Date: 08/13/18 Time: 13:00
[2018-08-13 16:07] LABS: BASO % 1.1 % (0.0-2.0); EOS # 0.1 K/uL (0.0-0.7); EOS % 1.3 % (0.0-4.0); LYMPH % 21.6 % (20.0-40.0); MEAN CELL VOLUME 86.8 fL (80.0-94.0); MEAN CORPUSCULAR HEMOGLOBIN 29.5 pg (27.0-31.0); MEAN PLATELET VOLUME 8.7 fL (7.2-11.7); MONO # 0.2 K/uL (0.0-0.8); MONO % 5.1 % (0.0-10.0); NEUT # 3.3 K/uL (1.8-7.0); NEUT % 70.9 % (50.0-75.0); RBC 4.81 Mil/uL (4.40-5.90); RED CELL DISTRIBUTION WIDTH 12.8 % (11.5-14.5); WHITE BLOOD COUNT 4.7 K/uL (4.8-10.8)
[2018-08-13 16:13] LABS: HEMOGLOBIN 14.2 g/dL (12.0-18.0)
--- NOTE | 2018-08-13 21:53 | CP.PCM.PN ---
Subjective - Date & Time of Evaluation Date of Evaluation: 08/13/18 Time of Evaluation: 09:20 - Subjective Subjective: Patient was seen and examined at bedside. No cardiac symptoms For BRANDYN today Physical Examination - Constitutional Appears: No Acute Distress - Head Exam Head Exam: NORMAL INSPECTION - Eye Exam Eye Exam: Normal appearance - ENT Exam ENT Exam: Mucous Membranes Moist - Respiratory Exam Respiratory Exam: Clear to Ausculation Bilateral, NORMAL BREATHING PATTERN - Cardiovascular Exam Cardiovascular Exam: REGULAR RHYTHM, +S1, +S2 - GI/Abdominal Exam GI & Abdominal Exam: Soft, Normal Bowel Sounds. absent: Tenderness - Neurological Exam Neurological Exam: Alert, Awake, Oriented x3 Neuro motor strength exam: Left Upper Extremity: 4, Right Upper Extremity: 5, Left Lower Extremity: 5, Right Lower Extremity: 5 - Psychiatric Exam Psychiatric exam: Normal Affect - Skin Skin Exam: Normal Color Assessment and Plan - Assessment and Plan (Free Text) Assessment: 42-year-old man with no significant past medical history came to the ER on 08/08/18 after he developed left facial droop and hand weakness that was noted at around 3 AM when he woke up that day. Acute Right MCA Stroke - Imaging: * ECHO w/ Bubble (08/10/18): no PFO For BRANDYN today Objective - Vital Signs/Intake and Output Vital Signs (last 24 hours): Temp Pulse Resp BP Pulse Ox 97.8 F 49 L 16 102/59 L 97 08/13/18 16:00 08/13/18 21:02 08/13/18 21:02 08/13/18 21:02 08/13/18 21:02 Intake and Output: 08/13/18 08/14/18 18:59 06:59 Intake Total 1725 475 Output Total 400 250 Balance 1325 225 - Medications Medications: Current Medications Acetaminophen (Tylenol 325mg Tab) 650 mg PO Q6 PRN PRN Reason: Pain, moderate (4-7) Last Admin: 08/13/18 21:20 Dose: 650 mg Aspirin (Aspirin) 325 mg PO Q24H [facility] Last Admin: 08/13/18 18:09 Dose: Not Given Clopidogrel Bisulfate (Plavix) 75 mg PO Q24H [facility] Last Admin: 08/13/18 18:09 Dose: Not Given Famotidine (Pepcid) 20 mg PO Q24H [facility] Last Admin: 01/17/19 17:31 Dose: 20 mg Heparin Sodium (Porcine) 4,000 (units/ Sodium Chloride) 1,004 mls @ 0 mls/hr IVP ONCE AMOS Stop: 08/18/18 09:01 Sodium Chloride (Sodium Chloride 0.9%) 1,000 mls @ 125 mls/hr IV .Q8H AMOS Stop: 08/14/18 08:00 Last Admin: 08/13/18 21:23 Dose: 125 mls/hr Nicardipine HCl 25 mg/ Sodium (Chloride) 250 mls @ 50 mls/hr IV .Q5H AMOS; Protocol Last Admin: 08/13/18 21:17 Dose: Not Given Lorazepam (Ativan) 0.5 mg IVP ONCE PRN PRN Reason: Anxiety Last Admin: 08/12/18 10:00 Dose: 0.5 mg Rosuvastatin Calcium (Crestor) 10 mg PO HS [facility]OS Last Admin: 08/13/18 21:15 Dose: 10 mg - Labs Labs: 08/13/18 16:01 08/13/18 05:35 PT 11.4 SECONDS (9.7-12.2) 08/13/18 05:35 INR 1.0 08/13/18 05:35 APTT 34 SECONDS (21-34) 08/13/18 05:35
[2018-08-14] MEDS: niCARdipine IV 25 MG in Sodium Chloride 0.9% 240 ML IV SCH ×2 (04:30→06:11)
[2018-08-14] MEDS: Sodium Chloride 0.9% 1,000 ML IV SCH (05:16)
[2018-08-14 06:31] LABS: BASO % 0.8 % (0.0-2.0); EOS # 0.1 K/uL (0.0-0.7); EOS % 2.1 % (0.0-4.0); HEMOGLOBIN 13.2 g/dL (12.0-18.0); LYMPH % 18.4 % (20.0-40.0); MEAN CELL VOLUME 87.3 fL (80.0-94.0); MEAN CORPUSCULAR HEMOGLOBIN 29.2 pg (27.0-31.0); MEAN CORPUSCULAR HGB CONC 33.5 g/dL (33.0-37.0); MEAN PLATELET VOLUME 8.9 fL (7.2-11.7); MONO # 0.3 K/uL (0.0-0.8); MONO % 6.7 % (0.0-10.0); NEUT # 3.7 K/uL (1.8-7.0); NRBC % 0.1 % (0.0-2.0); RBC 4.53 Mil/uL (4.40-5.90); RED CELL DISTRIBUTION WIDTH 12.6 % (11.5-14.5); WHITE BLOOD COUNT 5.2 K/uL (4.8-10.8)
[2018-08-14 07:03] LABS: ALB/GLOB RATIO 1.7 (1.0-2.1); ALBUMIN 3.9 g/dL (3.5-5.0); ALT/SGPT 21 U/L (21-72); AST/SGOT 26 U/L (17-59); BLOOD UREA NITROGEN 10 mg/dL (9-20); CALCIUM 8.4 mg/dl (8.6-10.4); GFR NON-AFRICAN AMERICAN > 60
--- NOTE | 2018-08-14 10:12 | CP.PCM.PN ---
Subjective - Date & Time of Evaluation Date of Evaluation: 08/14/18 Time of Evaluation: 10:10 - Subjective Subjective: PGY2 Medicine Note for Dr. Wild Patient seen and examined this morning at bedside. Patient had a stent placed in his right carotid artery yesterday. He is scheduled to be discharged later today, per neuro surgery. Patient is feeling well and has no complaints at this time. Objective - Vital Signs/Intake and Output Vital Signs (last 24 hours): Temp Pulse Resp BP Pulse Ox 98.3 F 58 L 19 93/48 L 99 08/14/18 04:00 08/14/18 06:02 08/14/18 06:02 08/14/18 06:02 08/14/18 06:02 Intake and Output: 08/14/18 08/14/18 06:59 18:59 Intake Total 1600 Output Total 1300 Balance 300 - Medications Medications: Current Medications Acetaminophen (Tylenol 325mg Tab) 650 mg PO Q6 PRN PRN Reason: Pain, moderate (4-7) Last Admin: 08/14/18 09:38 Dose: 650 mg Aspirin (Aspirin) 325 mg PO Q24H [facility] Last Admin: 08/13/18 18:09 Dose: Not Given Clopidogrel Bisulfate (Plavix) 75 mg PO Q24H [facility] Last Admin: 08/13/18 18:09 Dose: Not Given Famotidine (Pepcid) 20 mg PO Q24H [facility] Last Admin: 08/13/18 17:31 Dose: 20 mg Heparin Sodium (Porcine) 4,000 (units/ Sodium Chloride) 1,004 mls @ 0 mls/hr IVP ONCE AMOS Stop: 08/18/18 09:01 Nicardipine HCl 25 mg/ Sodium (Chloride) 250 mls @ 50 mls/hr IV .Q5H [facility]; Protocol Last Admin: 08/14/18 06:11 Dose: Not Given Lorazepam (Ativan) 0.5 mg IVP ONCE PRN PRN Reason: Anxiety Last Admin: 08/12/18 10:00 Dose: 0.5 mg Rosuvastatin Calcium (Crestor) 10 mg PO HS AMOS Last Admin: 08/13/18 21:15 Dose: 10 mg - Labs Labs: 08/14/18 06:24 08/14/18 06:21 PT 11.4 SECONDS (9.7-12.2) 08/13/18 05:35 INR 1.0 08/13/18 05:35 APTT 34 SECONDS (21-34) 08/13/18 05:35 - Constitutional Appears: Non-toxic, No Acute Distress - Head Exam Head Exam: ATRAUMATIC, NORMOCEPHALIC - Eye Exam Eye Exam: Normal appearance - ENT Exam ENT Exam: Mucous Membranes Moist - Neck Exam Neck Exam: absent: Lymphadenopathy, Tenderness - Respiratory Exam Respiratory Exam: Clear to Ausculation Bilateral, NORMAL BREATHING PATTERN. absent: Accessory Muscle Use, Rales, Rhonchi, Wheezes, Respiratory Distress - Cardiovascular Exam Cardiovascular Exam: REGULAR RHYTHM, +S1, +S2 - GI/Abdominal Exam GI & Abdominal Exam: Soft. absent: Distended, Firm, Guarding, Rigid, Tenderness - Extremities Exam Extremities Exam: absent: Calf Tenderness, Pedal Edema - Neurological Exam Neurological Exam: Alert, Awake, Oriented x3 Neuro motor strength exam: Left Upper Extremity: 5, Right Upper Extremity: 5, Left Lower Extremity: 5, Right Lower Extremity: 5 - Psychiatric Exam Psychiatric exam: Normal Affect, Normal Mood - Skin Skin Exam: Dry, Warm Assessment and Plan - Assessment and Plan (Free Text) Plan: Right ICA Dissection with Ischemic Stroke Interventional Neuro consulted, Dr. Delvalle * s/p FAN stent placement by Dr. Nakul Singh on 08/13/17 Neuro Surgery consulted, Dr. Ovalles Neurology consulted, Dr. Sifuentes Cardiology consulted, Dr. Andrade Brain MRI 08/12/17: * Infarct affecting the right frontotemporal perisylvian distribution is identified in evolution with increased territory affected in the interval though not dramatically worsened. Local mass effect is identified without midline shift. No abnormal intracranial enhancement identified at this time. Neck MRA 08/12/17: * Signal changes are are abnormal at the origin of the right internal carotid artery in indicate probable turbulent blood flow simulating a stenosis though intrinsic stenosis is not excluded, at the same level of the suspected dissection in the CT angiogram 08/10/2018. A short dissection remains possible though stable in the interval. A mild stenosis of the origin of the right internal carotid artery is suggested based on NASCET criteria. Follow- up neuro interventional consultation advised. * No significant stenosis bilateral common carotid arteries or left internal carotid artery. Bilateral vertebral arteries appear patent as well. Medications: * Aspirin 81mg PO daily * Plavix 75mg PO daily * Crestor 10mg PO HS Prophylactic Care Pepcid 20mg PO daily Discharge Instructions: Patient is to be discharged home per Dr. Wild Patient is to follow up with Dr. Nakul Singh in 2 weeks. Please call and schedule an appointment. Patient may shower today, but keep right groin dressing dry and intact. On Friday08/15/18 may remove the right groin dressing. Patient is to continue Plavix 75mg once daily in morning, Aspirin 81mg once daily in morning and Crestor 10mg once daily at bedtime. Do not lift anything heavier than 1 gallon of milk for 7-10 days If patient has any questions or concerns, please call and Dr. Wild's office or Dr. Nakul Singh's office or go directly to the nearest emergency department. Case discussed with Dr. Junito Espino Nathan PGY2
[2018-08-14 10:14] VITALS: BP 97/50
--- NOTE | 2018-08-14 11:47 | CP.PCM.DIS ---
Provider - Provider Date of Admission: 08/08/18 05:45 Attending physician: Vini Wild MD Consults: 08/08/18 04:18 Stroke Team Consult Stat Comment: cva Consulting Provider: Neurohospitalist Consulting Physician: NEUROHOSP Neurohospitalist for Consult: Leonidas Sifuentes Neurohospitalist for Consult: Uribe,Gautami Reason for Consult: cva 08/08/18 05:46 Neurology Consult Stat Comment: tia Consulting Provider: Leonidas Sifuentes Consulting Physician: Leonidas Sifuentes Reason for Consult: tia 08/08/18 12:41 Cardiology Consult Routine Comment: Consulting Provider: Jerome Andrade Consulting Physician: Jerome Andrade Reason for Consult: stroke 08/10/18 18:05 Physician Consult Stat Comment: Consulting Provider: Dylon Ovalles Consulting Physician: Dylon Ovalles Reason for Consult: right frontal lobe subarachnoid hemorrhage 08/10/18 18:06 Neurovascular Consult Stat Comment: Consulting Provider: Dylon Ovalles Consulting Physician: Dylon Ovalles Reason for Consult: sub arrachnoid hemmorage Vascular Surgery Stat Comment: Consulting Provider: Troy Mckeon Jr. Physician Instructions: Reason For Exam: focal dissection 08/10/18 18:13 Critical Care Consult Routine Comment: focal dissection Consulting Provider: Vini Wild Consulting Physician: Vini Wild Reason for Consult: focal dissection 08/11/18 12:24 Neurointerventional consult Routine Consulting Provider: Romeo Delvalle Consulting Physician: Romeo Delvalle Reason for Consult: eval for right internal carotid artery focal dissection Time Spent in preparation of Discharge (in minutes): 35 Diagnosis - Discharge Diagnosis (1) Acute right MCA stroke Status: Acute Hospital Course - Lab Results Lab Results: Micro Results 08/11/18 06:05 Naris MRSA Culture (Admit) - Final MRSA NOT DETECTED Most Recent Lab Values WBC 5.2 K/uL (4.8-10.8) 08/14/18 06:24 RBC 4.53 Mil/uL (4.40-5.90) 08/14/18 06:24 Hgb 13.2 g/dL (12.0-18.0) 08/14/18 06:24 Hct 39.6 % (35.0-51.0) 08/14/18 06:24 MCV 87.3 fL (80.0-94.0) 08/14/18 06:24 MCH 29.2 pg (27.0-31.0) 08/14/18 06:24 MCHC 33.5 g/dL (33.0-37.0) 08/14/18 06:24 RDW 12.6 % (11.5-14.5) 08/14/18 06:24 Plt Count 159 K/uL (130-400) 08/14/18 06:24 MPV 8.9 fL (7.2-11.7) 08/14/18 06:24 Neut % (Auto) 72.0 % (50.0-75.0) 08/14/18 06:24 Lymph % (Auto) 18.4 % (20.0-40.0) L 08/14/18 06:24 Gila % (Auto) 6.7 % (0.0-10.0) 08/14/18 06:24 Eos % (Auto) 2.1 % (0.0-4.0) 08/14/18 06:24 Baso % (Auto) 0.8 % (0.0-2.0) 08/14/18 06:24 Neut # (Auto) 3.7 K/uL (1.8-7.0) 08/14/18 06:24 Lymph # (Auto) 1.0 K/uL (1.0-4.3) 08/14/18 06:24 Gila # (Auto) 0.3 K/uL (0.0-0.8) 08/14/18 06:24 Eos # (Auto) 0.1 K/uL (0.0-0.7) 08/14/18 06:24 Baso # (Auto) 0.0 K/uL (0.0-0.2) 08/14/18 06:24 ESR 1 mm/hr (0-15) 08/10/18 11:29 PT 11.4 SECONDS (9.7-12.2) 08/13/18 05:35 INR 1.0 08/13/18 05:35 APTT 34 SECONDS (21-34) 08/13/18 05:35 Plt P2Y12 React Units 55 PRU (194-418) L 01/17/19 16:01 Protein C Antigen 98 % (70-140) 08/10/18 11:29 Protein S Antigen 88 % (70-140) 08/10/18 11:29 Antithrombin III Ag 81 % (80-120) 08/10/18 11:29 Sodium 134 mmol/L (132-148) 08/14/18 06:21 Potassium 4.1 mmol/L (3.6-5.2) 08/14/18 06:21 Chloride 103 mmol/L (98-107) 08/14/18 06:21 Carbon Dioxide 23 mmol/L (22-30) 08/14/18 06:21 Anion Gap 12 (10-20) 08/14/18 06:21 BUN 10 mg/dL (9-20) 08/14/18 06:21 Creatinine 0.9 mg/dL (0.8-1.5) 08/14/18 06:21 Est GFR ( Amer) > 60 08/14/18 06:21 Est GFR (Non-Af Amer) > 60 08/14/18 06:21 POC Glucose (mg/dL) 72 mg/dL (65-110) 08/11/18 12:50 Random Glucose 82 mg/dL (75-110) D 08/14/18 06:21 Hemoglobin A1c 5.4 % (4.2-6.5) 08/08/18 04:29 Calcium 8.4 mg/dl (8.6-10.4) L 08/14/18 06:21 Phosphorus 3.9 mg/dL (2.5-4.5) 08/14/18 06:21 Magnesium 1.8 mg/dL (1.6-2.3) 08/14/18 06:21 Total Bilirubin 1.7 mg/dL (0.2-1.3) H 08/14/18 06:21 AST 26 U/L (17-59) 08/14/18 06:21 ALT 21 U/L (21-72) 08/14/18 06:21 Alkaline Phosphatase 31 U/L (38-126) L D 08/14/18 06:21 Troponin I < 0.0120 ng/mL (0.00-0.120) 08/08/18 04:29 C-Reactive Protein < 5.00 mg/L (0.0-9.9) 08/10/18 11:29 Total Protein 6.1 g/dL (6.3-8.3) L 08/14/18 06:21 Albumin 3.9 g/dL (3.5-5.0) 08/14/18 06:21 Globulin 2.3 gm/dL (2.2-3.9) 08/14/18 06:21 Albumin/Globulin Ratio 1.7 (1.0-2.1) 08/14/18 06:21 Triglycerides 87 mg/dL (0-149) 08/08/18 04:29 Cholesterol 203 mg/dL (0-199) H 08/08/18 04:29 LDL Cholesterol Direct 110 mg/dL (0-129) 08/08/18 04:29 HDL Cholesterol 59 mg/dL (30-70) 08/08/18 04:29 Vitamin B12 418 pg/mL (239-931) 08/10/18 11:29 25-OH Vitamin D Total 29.0 NG/ML (30.0-100.0) L 08/10/18 11:29 Folate 8.3 ng/mL 08/10/18 11:29 Homocysteine 13.1 umol/L (6.6-14.8) 08/10/18 11:29 Free T4 0.79 ng/dL (0.78-2.19) 08/10/18 11:29 TSH 3rd Generation 1.83 mIU/L (0.46-4.68) 08/10/18 11:29 Prothrombin Mut Interp see note 08/10/18 14:50 Prothrombin Gene Mutate see note 08/10/18 14:50 Prothromb Gene Review see note 08/10/18 14:50 Blood Type B POSITIVE 08/08/18 05:29 Antibody Screen Negative 08/08/18 05:29 - Date & Time of H&P Date of H&P: 08/14/18 Discharge Exam - Head Exam Head Exam: ATRAUMATIC, NORMAL INSPECTION - Neurological Exam Neurological exam: Alert, CN II-XII Intact, Oriented x3 - Skin Skin Exam: Dry, Intact (Right groin dressing D&I), Normal Color Discharge Plan - Follow Up Plan Condition: GUARDED Additional Instructions: is Post OP Day 1 Right Carotid Artery Stent. VSS, Neurological assessment is Normal, NIHSS 1. Pt denies c/o headache,blurred vision,or dizziness. Pt is stable for discharge to home. Right groin s/p access site with dressing D&I, soft to touch with no ecchymosis noted. Please see recommendations for discharge below. NEUROLOGICAL ASSESSMENT: General: awake,sitting up in bed Mental: alert and oriented to person, place and time, follows commands Speech: fluent Cranial Nerves:PERRL, BTT bilaterally, EOMI, no facial asymmetry, tongue midline Motor: 5/5 left and right upper and lower extremities Sensory: Intact bilaterally Coordination: [id number] no dysmetria Gait: deferred PLAN: 1-Continue Plavix 75mg daily 2-Continue Aspirin 81mg daily 3-May shower today, keep right groin dressing dry and intact 4-On Friday08/15/18 may remove the right groin dressing. 5-Do not lift anything heavier than 1 gallon of milk for 7-10 days 6-Please follow-up with Dr.Jeffrey Singh in 2 weeks 7-Suggest discharge to home 8-If I can be of further assistance please call [phone]
[2018-08-14 13:26] VITALS: PULSE 53; RESP 17
--- NOTE | 2018-08-14 14:29 | CP.PCM.PN ---
Subjective - Date & Time of Evaluation Date of Evaluation: 08/14/18 Time of Evaluation: 14:27 - Subjective Subjective: Neuro Follow-Up Note: Mr. jackson was evaluated this afternoon. He was cleared for d/c today by neur IR team. He states that he feels great and has no complaints of further h/a. Denies dizziness, visual changes, chest pain, palpitations, sob, cough, abd pain, n/v/d. Objective - Vital Signs/Intake and Output Vital Signs (last 24 hours): Temp Pulse Resp BP Pulse Ox 98.3 F 53 L 17 97/50 L 97 08/14/18 04:00 08/14/18 13:00 08/14/18 13:00 08/14/18 07:02 08/14/18 07:02 Intake and Output: 08/14/18 08/14/18 06:59 18:59 Intake Total 1600 Output Total 1300 Balance 300 - Medications Medications: Current Medications Acetaminophen (Tylenol 325mg Tab) 650 mg PO Q6 PRN PRN Reason: Pain, moderate (4-7) Last Admin: 08/14/18 09:38 Dose: 650 mg Aspirin (Aspirin Chewable) 81 mg PO DAILY [facility] Last Admin: 08/14/18 10:32 Dose: 81 mg Clopidogrel Bisulfate (Plavix) 75 mg PO Q24H [facility] Last Admin: 08/14/18 10:32 Dose: 75 mg Famotidine (Pepcid) 20 mg PO Q24H [facility] Last Admin: 08/13/18 17:31 Dose: 20 mg Heparin Sodium (Porcine) 4,000 (units/ Sodium Chloride) 1,004 mls @ 0 mls/hr IVP ONCE AMOS Stop: 08/18/18 09:01 Nicardipine HCl 25 mg/ Sodium (Chloride) 250 mls @ 50 mls/hr IV .Q5H [facility]; Protocol Last Admin: 08/14/18 06:11 Dose: Not Given Lorazepam (Ativan) 0.5 mg IVP ONCE PRN PRN Reason: Anxiety Last Admin: 08/12/18 10:00 Dose: 0.5 mg Rosuvastatin Calcium (Crestor) 10 mg PO HS [facility] Last Admin: 08/13/18 21:15 Dose: 10 mg - Labs Labs: 08/14/18 06:24 08/14/18 06:21 PT 11.4 SECONDS (9.7-12.2) 08/13/18 05:35 INR 1.0 08/13/18 05:35 APTT 34 SECONDS (21-34) 08/13/18 05:35 - Constitutional Appears: Well, Non-toxic, No Acute Distress - Head Exam Head Exam: ATRAUMATIC, NORMAL INSPECTION, NORMOCEPHALIC - Eye Exam Eye Exam: EOMI, Normal appearance, PERRL Pupil Exam: NORMAL ACCOMODATION, PERRL - ENT Exam ENT Exam: Mucous Membranes Moist - Neck Exam Neck Exam: Full ROM, Normal Inspection - Respiratory Exam Respiratory Exam: NORMAL BREATHING PATTERN - Cardiovascular Exam Cardiovascular Exam: REGULAR RHYTHM - GI/Abdominal Exam GI & Abdominal Exam: Soft - Extremities Exam Extremities Exam: Full ROM. absent: Calf Tenderness, Pedal Edema - Back Exam Back Exam: Full ROM, NORMAL INSPECTION - Neurological Exam Neurological Exam: Alert, Awake, CN II-XII Intact, Normal Gait, Oriented x3, Reflexes Normal Neuro motor strength exam: Left Upper Extremity: 5, Right Upper Extremity: 5, Left Lower Extremity: 5, Right Lower Extremity: 5 Additional comments: Speech clear and fluid No facial asymmetry Follows all commands No visual field deficits FROM to all extremities No pronator drift Sensation and vibration intact and equal No tremors, no clonus - Psychiatric Exam Psychiatric exam: Normal Affect, Normal Mood - Skin Skin Exam: Normal Color Additional comments: dressing to right groin post-angiogram Assessment and Plan (1) Acute right MCA stroke Assessment & Plan: Mr. Jackson is POD #1 cerebral angiogram with stenting by neuro IR. He is doing very well neurologically. He has been d/c by neuro IR team today. -Continue ASA and Plavix per neuro IR. -F/U with neuro IR. -F/U with Dr. Sifuentes in the office within 2-3 weeks (office information provided to pt already). Case discussed with Dr. Sifuentes. Status: Acute
[2018-08-14 16:13] VITALS: TEMP 98.4; O2SAT 98
--- NOTE | 2018-08-14 16:14 | PCM.OP ---
Operative Report - Operative Report Date of Surgery/Procedure: 08/13/18 Time of Surgery/Procedure: 11:30 Surgeon: Nakul Singh MD Anesthesia/Sedation: monitored anesthesia care Pre-Operative Diagnosis: symptomatic right internal carotid artery stenosis Post-Operative Diagnosis: symptomatic right internal carotid artery stenosis Indication for Surgery: symptomatic dissection right internal carotid artery Operative Findings: 80% stenosis of the right internal carotid artery with intimal flap at the origin of the internal carotid artery Procedure/Operation Description: PRE-OPERATIVE DIAGNOSIS: Symptomatic Right Internal Carotid Stenosis secondary to dissection of Right Internal carotid POST OPERATIVE DIAGNOSIS: Same PROCEDURE: CEREBRAL ARTERIOGRAM and Stenting of the Right Internal carotid artery with embolic Reverse flow (MOMA) DATE OF SERVICE: August 13, 2018 SURGEON: Dr. Nakul Singh CONSENT: Informed consent was obtained for the procedure from the patient after discussing the nature of the proposed procedure the possible risks and benefits. Specific risks mentioned the patient include risk of ischemic stroke vascular injury. After I answered all questions written informed consent was obtained. ANESTHESIA: monitored anesthesia care INTRODUCTION: After the patient was placed under anesthesia, both groins were prepped and draped in the usual sterile fashion. A timeout procedure was documented, the patient's name date of and medical record number as well as the procedures to be performed was confirmed by the entire team, after everyone in the room agreed, the procedure continued. Using sterile Seldinger technique the right common femoral artery was punctured using a micro puncture needle. Over a 0.18 mm wire a 5 Ivorian sheath was int roduced into the artery and then hooked up to a continuous heparinized flush system. Via the sheath a 5 Ivorian Soriano Catheter was introduced over a 0.35 Terumo glide wire, into the double aorta the catheter was than double flushed and subsequently hooked up to a separate continuous heparinized flush system. The following vessels were than sequentially selected. Digital angiographic acquisitions were than obtained: VESSELS SELECTED: The right common carotid artery was selected cervical and intracranial views were obtained. Diagnostic Imaging findings: injection of the right common Carotid artery with cervical views demonstrate that there is an a antegrade flow within the common carotid artery . There is a linear dissection flap that narrows the right internal at the bulb causing an 80 percent narrowing using NASCET criteria. The distal vessel is within normal limits Injection of the Common carotid with intracranial views demonstrates that antegrade flow with only filling of the middle cerebral artery not the Anterior cerebral or posterior cerebral artery. The middle cerebral artery is isolated there is a missing posterior frontal branch in the sylvian fissure which was seen on the prior CTA Intervention: Baseline Activated coagulation testing was performed followed by intravenous heparin administration of 5000 units. A follow up ACT was obtained at 15 minutes. The diagnostic catheter was placed into the external carotid artery under road mapping conditions. A Nolan wire was used exchange the diagnostic catheter and the diagnostic sheath for nine Ivorian sheath in the right common femoral artery and a MOMA was advanced with the distal balloon was placed into the right external carotid artery just proximal to the takeoff of the facial lingual trunk . The external carotid balloon for the MOMA was inflated. The dilator and wire were removed. At this an 8m x 30 mm precise stent was prepared and placed on a Synchro wire this was advanced as a unit. As was brought into the common carotid artery balloon in the common carotid artery was inflated and then the wire was used across the lesion followed by placement of the stent across the lesion and deployment of the stent across the lesion under fluoroscopic and road mapping guidance. Successful physician was noted. Stent delivery devices removed. A 7 mm balloon by 20 mm was passed into the internal carotid artery into the stent and then subsequently inflated to 8 haritha to reopen the vessel. At this point the balloon delivery system was removed. Aspiration of the internal carotid and common carotid artery contents was performed for proximally one minute. At this point the external carotid artery with balloon was deflated, followed by continued aspiration of the carotid contents after approximately 11 minute the common carotid artery balloon was deflated, and the entire MOMA system was removed. The diagnostic catheter was re-prepared and read administered into the abdominal aorta and flushed. The right common carotid artery was selected cervical and intracranial views were obtained. Final angiogram of the right common carotid artery and internal demonstrates a stent is a good positioned is no residual stenosis. There is no kink or flow limitation. Final angiogram of the internal carotid with intracranial views demonstrates good filling of the intracranial vessel right middle cerebral artery is identified and is a filling well without abnormality. There is no evidence for aneurysm vascular affirmation. The patient was examined neurologically no new deficits noted. The right common femoral artery sheath was injected with views of the common femoral artery and external iliac demonstrating no significant arterial stenosis. The right groin was re-prepped and followed by placement of an eight Ivorian angio-seal which was deployed successfully. Hemostasis was obtained. The patient was taken from the table and placed on the stretchable back to the ICU for overnight observation. IMPRESSION: successful stenting of a high-grade stenosis of the right internal carotid artery likely caused by a focal dissection of the internal carotid artery treated with stenting and angioplasty after reverse flow embolic protection was performed. Sincerely, Nakul Singh MD. Interventional Neuro [facility] Estimated Blood Loss: 50 mL Blood Replaced: none Complications: none Discharge & Condition: stable for observation and ICU overnight
== END 2018-08-14 15:30 | disposition home or self-care (01) | DRG 531 ==
LOC: C.ER 04:08 → C.9E 05:45 → C.5S 11:43 → C.9I 08-10 20:49
PROVIDERS: ADMIT Internal Medicine Pulmonary Disease; ATTEND Internal Medicine Pulmonary Disease
PROC: 037K3DZ Dilation of Right Internal Carotid Artery with Intraluminal Device, Percutaneous Approach (ICD-10-PCS; principal; 2018-08-13)
PROC: B3161ZZ Fluoroscopy of Right Internal Carotid Artery using Low Osmolar Contrast (ICD-10-PCS; 2018-08-13)
DX: I63.411 Cerebral infarction due to embolism of right middle cerebral artery (principal); I77.71 Dissection of carotid artery; I65.21 Occlusion and stenosis of right carotid artery; I10 Essential (primary) hypertension; E11.9 Type 2 diabetes mellitus without complications; D68.51 Activated protein C resistance; E78.00 Pure hypercholesterolemia, unspecified; J32.2 Chronic ethmoidal sinusitis; Z79.82 Long term (current) use of aspirin; Z79.899 Other long term (current) drug therapy; Z87.891 Personal history of nicotine dependence